=== PATIENT | female | born 1985 | race Caucasian/White ===

== ENCOUNTER 2020-01-10 16:21 | Emergency (ER) | payer OTHER, SELFPAY ==
[2020-01-10 16:32] VITALS: BP 126/63; PULSE 82; RESP 16; TEMP 36.6; O2SAT 98
--- NOTE | 2020-01-10 16:36 | ED.NAVMDI ---
HPI - Nausea/Vomiting/Diarrhea General Chief complaint: Abdominal Pain Stated complaint: Nausea/Vomitting Time Seen by Provider: 01/10/20 16:37 Source: patient and RN notes reviewed Mode of arrival: ambulatory Limitations: no limitations History of Present Illness HPI Narrative: 34-year-old female presents with concern for 4-day history of vomiting. Reports vomiting approximately 3 times daily. Reports decreased appetite. Reports intermittent loose stools. Reports intermittent abdominal cramping. Reports feeling bloated. She denies fever, abdominal pain. Reports she mostly drinks energy drinks, [employer] coffee, does not drink water. Reports she has had a tubal ligation, her last period was approximately 1 month ago. She denies dysuria, hematuria, urine frequency, urine urgency. MD elicited complaint: nausea and vomiting Related Data Allergies Allergy/AdvReac Type Severity Reaction Status Date / Time sulfamethoxazole Allergy Unknown ITCHING, Verified 01/10/20 16:40 HIVES trimethoprim Allergy Unknown ITCHING, Verified 01/10/20 16:40 HIVES Malt Allergy Intermediate RASH Uncoded 01/10/20 16:40 Review of Systems Review of Systems: Narrative: CONSTITUTIONAL: Denies malaise, chills, sweats, or fever. EYES: Denies visual changes, redness, or discharge. ENT: Denies rhinorrhea, congestion, sinus pain, otalgia or sore throat. CARDIOVASCULAR: Denies chest pain, palpitations, or edema. RESPIRATORY: Denies cough or dyspnea. GASTROINTESTINAL: Denies abdominal pain, bloody, or mucous stools. Reports nausea, approximately 3 episodes of vomiting daily, intermittent loose stools, abdominal cramping GENITOURINARY: Denies frequency, urgency, dysuria or hematuria. SKIN: Denies rash or itching. MUSCULOSKELETAL: Denies myalgia. NEUROLOGIC: Denies headache. All systems reviewed & are unremarkable except as noted in HPI and below PMFSH Social History Social History Gender identity (if verbalized by the patient): Female Comments At time of signature, agree with nursing past medical, surgical, social and family history. There is no relevant family history pertinent to the presenting complaint Exam Narrative: Exam Narrative: GENERAL: Well-appearing, well-nourished, and in no acute distress. HEAD: Normocephalic. EYES: PERRLA, conjunctivae clear. NECK: Supple. No lymphadenopathy CHEST: Clear to auscultation. No respiratory distress. HEART: Regular rate and rhythm. No murmur heard. Normal peripheral pulses. ABDOMEN: Soft, nontender upon palpation, nondistended, normal active bowel sounds, no palpable or pulsatile masses, no guarding. No CVA tenderness SKIN: Warm, dry, no rash. NEURO: Alert and oriented x3. PSYCH: Normal mood and affect Course Course Emergency Course: Patient is aware of diagnosis, understands and agrees to treatment plan. Anticipatory guidance given. Patient agrees to follow-up as directed and is aware of reasons to seek care at the emergency department. Portions of this record may have been created with voice recognition software Vital Signs Vital signs: Vital Signs Temperature 97.9 F 01/10/20 16:32 Pulse Rate 82 01/10/20 16:32 Respiratory Rate 16 01/10/20 16:32 Blood Pressure 126/63 01/10/20 16:32 Pulse Oximetry 98 01/10/20 16:32 Temperature 97.9 F 01/10/20 16:32 Pulse Rate 82 01/10/20 16:32 Respiratory Rate 16 01/10/20 16:32 Blood Pressure 126/63 01/10/20 16:32 Pulse Oximetry 98 01/10/20 16:32 Reviewed. MDM - Nausea/Vomiting/Diarrhea MDM Narrative Medical decision making narrative: No evidence of pancreatitis, AAA, cholecystitis, choledocholithiasis, cholangitis, mesenteric ischemia, small bowel obstruction, diverticulitis, colitis, appendicitis, or pelvic etiology such as ovarian/testicular torsion, TOA, or ectopic . Patient has no history of peptic ulcer, H. pylori, chronic aspirin NSAID or corticosteroid use, chronic alcohol use, no history of inflammato
== END 2020-01-10 16:56 | disposition home or self-care (01) ==
PROVIDERS: Emergency Provider Nurse Practitioner
DX: R11.2 Nausea with vomiting, unspecified (principal); R19.7 Diarrhea, unspecified
CPT/HCPCS: 81003; 81025; 99213; G0463

== ENCOUNTER 2021-01-03 17:09 | Emergency (ER) | payer OTHER, SELFPAY ==
--- NOTE | ~2021-01-03 | CT_ITS ---
EXAMINATION: CT BRAIN W/O DATE: 01/03/2021 18:13 INDICATION: Dizziness TECHNIQUE: Computed tomography (CT) of the head was performed without intravenous contrast. The dose- length product was 605.33 mGy-cm. Automated exposure control and iterative reconstruction technique w ere employed. COMPARISON: No prior studies for comparison. FINDINGS: Normal brain parenchymal volume for age. Normal fraga-white differentiation. No acute intrac ranial hemorrhage, infarction, mass or mass effect. No ventriculomegaly or midline shift. Midline sagittal images demonstrate a normal corpus callosum, c raniovertebral junction and sella turcica. Basilar cisterns are patent. Paranasal sinuses and mastoids are pneumatized. No depressed skull fractures. IMPRESSION: 1. No acute intracranial abnormality. Reviewed, dictated and finalized at location A.
--- NOTE | ~2021-01-03 | XR_ITS ---
EXAMINATION: XR chest 1V portable 01/03/2021 18:15 INDICATION: Cough. Nausea. PROCEDURE: AP portable chest COMPARISON: 12/05/2009 FINDINGS: The lungs are clear. The cardiomediastinal silhouette is within normal limits. There are no pleural effusions. There is no pneumothorax suspected. IMPRESSION: 1: NO ACUTE CARDIOPULMONARY DISEASE. Reviewed, dictated and finalized at location A.
[2021-01-03 17:30] VITALS: BP 120/74; PULSE 78; RESP 18; TEMP 36.6; O2SAT 100
--- NOTE | 2021-01-03 17:50 | PC.NURSE ---
at bedside for pt assessment.
--- NOTE | 2021-01-03 17:55 | ECG_ITS ---
Measurements Intervals [place] Rate: 74 P: 43 TX: 137 QRS: 53 QRSD: 89 T: 24 QT: 383 QTc: 426 Interpretive Statements SINUS RHYTHM NORMAL ECG Electronically Signed On 01-03-2021 20:16:18 CDT by Alton Dueñas D.O.
--- NOTE | 2021-01-03 18:03 | PC.NURSE ---
xray at bedside.
[2021-01-03 18:16] LABS: Basophils Absolute Auto 0.1 K/mm3 (0.0-0.1); Basophils Percent Auto 0.9 % (0.2-1.2); Eosinophils Absolute Auto 0.4 K/mm3 (0-0.3); Eosinophils Percent Auto 3.5 % (0-4.4); Hematocrit 36.2 % (37.0-47.0); Immature Granulocyte Absolute 0.03 K/mm3 (0.00-0.031); Immature Granulocyte Percent A 0.3 % (0-0.5); Lymphocytes Percent Auto 47.6 % (18.3-44.2); Mean Corpuscular HGB Conc 33.1 g/dl (32-36); Mean Corpuscular Hemoglobin 28.5 pg (26-34); Monocytes Absolute Auto 0.8 K/mm3 (0.1-0.6); Monocytes Percent Auto 7.3 % (2.6-8.5); Neutrophils Absolute Auto 4.6 K/mm3 (1.3-6.7); Neutrophils Percent Auto 40.4 % (45.5-73.1); Platelet Count Result 289 k/mm3 (150-375); Red Blood Count 4.21 M/mm3 (4.2-5.4); Red Cell Distribution Width 14.6 % (11.5-14.5); White Blood Count 11.4 K/mm3 (4.5-10.0)
[2021-01-03 18:18] VITALS: BP 113/64; PULSE 71; RESP 18; O2SAT 99
[2021-01-03] MEDS: MECLIZINE HCL 25 MG TABLET PO (18:26)
[2021-01-03 18:34] LABS: Alanine Aminotransferase 14 U/L (4-35); Albumin Level 4.4 g/dL (3.5-5.1); Alkaline Phosphatase 58 U/L (38-126); Anion Gap 6 mmol/L (8-16); Aspartate Amino Transferase 25 U/L (14-36); Bilirubin,Total 0.3 mg/dL (0.2-1.3); Blood Urea Nitrogen 9 mg/dL (7-17); Calcium 9.5 mg/dL (8.4-10.2); Carbon Dioxide 26 mmol/L (22-30); Chloride 102 mmol/L (98-107); Estimated CRCL calculation 100 ml/min; Estimated Glomerular Filt Rate > 60; Glucose 76 mg/dL (65-110); Potassium 3.7 mmol/L (3.4-5.0); Sodium 134 mmol/L (137-145)
[2021-01-03 18:42] LABS: Add Urine Microscopic? NO; Appearance Urine Clear (Clear); Bilirubin Urine Negative (Negative); Blood Urine Negative (Negative); Color Urine Yellow (Yellow); Glucose Urine UA Negative (Negative); Ketones Urine Negative (Negative); Leukocyte Esterase Ur Negative LEU/UL (Negative); Nitrate Urine Negative (Negative); Protein Urine Negative (Negative); Specific Grav Ur 1.012 (1.001-1.035); Urobilinogen Urine Negative mg/dL (<2.0)
[2021-01-03 18:55] VITALS: BP 100/54; PULSE 80; RESP 16; O2SAT 99
--- NOTE | 2021-01-03 19:20 | ED.GENADULT ---
HPI - General Adult General Chief complaint: Dizziness Stated complaint: Nausea/Dizzy Time Seen by Provider: 01/03/21 17:44 History of Present Illness HPI narrative: Patient 35-year-old female presents the emergency department with chief complaint of dizziness. Patient reports that she has been having episodes of lightheadedness and dizziness that she has been having since September. Patient reports was seen her primary care physician and had laboratory studies done patient was recommended by her primary doctor to come to the emergency department today for a CT head and a chest x-ray. Patient reports no new symptoms with this reports no focal neurological deficit. Related Data Allergies Allergy/AdvReac Type Severity Reaction Status Date / Time sulfamethoxazole Allergy Unknown ITCHING, Verified 01/03/21 17:30 HIVES trimethoprim Allergy Unknown ITCHING, Verified 01/03/21 17:30 HIVES Malt Allergy Intermediate RASH Uncoded 01/10/20 16:40 Review of Systems Review of Systems: A 10 system review of systems was completed on the patient and is negative except for what is stated in the HPI. Nursing and ancillary documentation was reviewed. [facility] Social History Social History Gender identity (if verbalized by the patient): Female Exam Narrative: GENERAL: Well-appearing, well-nourished, and in no acute distress. HEAD: Normocephalic, atraumatic. EYES: PERRLA and EOMI. ENT: Nares clear, no rhinorrhea or epistaxis. Mucous membranes moist. NECK: Supple. CHEST: Clear to auscultation. No respiratory distress. HEART: Regular rate and rhythm. No murmur heard. Normal peripheral pulses. ABDOMEN: Soft, nontender, nondistended, normal active bowel sounds. EXTREMITIES: Normal range of motion. No edema. SKIN: Warm, dry, no rash. NEURO: No focal deficits. Alert and oriented x3. PSYCH: Normal mood and affect. Course Vital Signs Vital signs: Vital Signs Temperature 36.6 C 01/03/21 17:30 Pulse Rate 78 01/03/21 17:30 Respiratory Rate 18 01/03/21 17:30 Blood Pressure 120/74 01/03/21 17:30 Pulse Oximetry 100 01/03/21 17:30 Temperature 36.6 C 01/03/21 17:30 Pulse Rate 80 01/03/21 18:55 Respiratory Rate 16 01/03/21 18:55 Blood Pressure 100/54 L 01/03/21 18:55 Pulse Oximetry 99 01/03/21 18:55 Medical Decision Making Vital Signs Vital Signs: Vital Signs Temperature 36.6 C 01/03/21 17:30 Pulse Rate 78 01/03/21 17:30 Respiratory Rate 18 01/03/21 17:30 Blood Pressure 120/74 01/03/21 17:30 Pulse Oximetry 100 01/03/21 17:30 Temperature 36.6 C 01/03/21 17:30 Pulse Rate 80 01/03/21 18:55 Respiratory Rate 16 01/03/21 18:55 Blood Pressure 100/54 L 01/03/21 18:55 Pulse Oximetry 99 01/03/21 18:55 Lab Data Result diagrams: 01/03/21 18:01 01/03/21 18:01 Labs: Lab Results 01/03/21 01/03/21 01/03/21 Range/Units 18:01 18:01 18:16 WBC 11.4 H (4.5-10.0) K/mm3 RBC 4.21 (4.2-5.4) M/mm3 Hgb 12.0 (12.0-15.0) g/dL Hct 36.2 L (37.0-47.0) % MCV 86.0 (80-100) fl MCH 28.5 (26-34) pg MCHC 33.1 (32-36) g/dl RDW 14.6 H (11.5-14.5) % Plt Count 289 (150-375) k/mm3 MPV 11.0 H (7.4-10.4) fl Immature Gran % (Auto) 0.3 (0-0.5) % Neut % (Auto) 40.4 L (45.5-73.1) % Lymph % (Auto) 47.6 H (18.3-44.2) % [place] % (Auto) 7.3 (2.6-8.5) % Eos % (Auto) 3.5 (0-4.4) % Baso % (Auto) 0.9 (0.2-1.2) % Lymph # (Auto) 5.40 H (0.9-3.2) K/mm3 [place] # (Auto) 0.8 H (0.1-0.6) K/mm3 Eos # (Auto) 0.4 H (0-0.3) K/mm3 Baso # (Auto) 0.1 (0.0-0.1) K/mm3 Abs Immat Gran (auto) 0.03 (0.00-0.031) K/mm3 Absolute Neuts (auto) 4.6 (1.3-6.7) K/mm3 Absolute Nucleated RBC 0.0 (0.0-0.012) K/mm3 Nucleated RBC % 0.0 (0.0-0.2) % Sodium 134 L (137-145) mmol/L Potassium 3.7 (3.4-5.0) mmol/L Chloride
[2021-01-03 19:22] VITALS: BP 93/43; PULSE 76; RESP 24; O2SAT 99
== END 2021-01-03 19:39 | disposition home or self-care (01) ==
PROVIDERS: Emergency Provider Emergency Medicine; PCP Emergency Medicine
DX: R42 Dizziness and giddiness (principal)
CPT/HCPCS: 36415; 70450; 71045; 80053; 81003; 81025; 85025; 93005; 99284; A9270

== ENCOUNTER 2021-06-24 12:53 | Outpatient (CLI) | payer OTHER, SELFPAY ==
--- NOTE | ~2021-06-24 | MMUS_ITS ---
EXAMINATION: MM diagnostic pérez LT w eletuerio, US breast LT limited HISTORY: Pain in the upper outer quadrant of the left breast TECHNIQUE: Craniocaudal, mediolateral, and mediolateral oblique 3-D tomosynthesis images of the left breast were performed and synthetic 2-D images were generated. CAD analysis was submitted and interpr eted. High resolution limited left breast ultrasound was performed. COMPARISON: No prior mammogram is currently available for comparison. BREAST PARENCHYMAL COMPOSITION: The breasts are heterogeneously dense, which may obscure small masses . FINDINGS: MAMMOGRAPHIC FINDINGS: There is no evidence of suspicious mass, calcification, or architectural distortion in either breast malignancy. There has been no suspicious interval change. ULTRASOUND: There is no evidence of focal abnormal solid or cystic mass in the vicinity of the patient's left nicole ast pain. IMPRESSION: 1. No specific mammographic or sonographic correlate is identified for the patient's reported left br east pain Further evaluation at this time should be based on clinical assessment. Continued follow-up physical examination is recommended. 2. Recommend routine screening mammography beginning at age 40. BI-RADS Category 1: Negative Reviewed, dictated and finalized at location A. BASE SPECIALIST IMPRESSION: 1. No specific mammographic or sonographic correlate is identified for the casa ent's reported left breast pain Further evaluation at this time should be based on clinical assessment. Continued follow-up physical examination is recommende d. 2. Recommend routine screening mammography beginning at age 40. BI-RADS Category 1: Negative
== END 2021-06-24 12:54 | disposition home or self-care (01) ==
LOC: ANHIMG 12:54
PROVIDERS: PCP Emergency Medicine; Visit Provider Emergency Medicine
DX: N63.20 Unspecified lump in the left breast, unspecified quadrant (principal)
CPT/HCPCS: 76642; 77061; 77065; G0279

== ENCOUNTER 2021-07-03 08:48 | Outpatient (CLI) | payer OTHER, SELFPAY ==
--- NOTE | ~2021-07-03 | US_ITS ---
EXAMINATION: US pelvic complete DATE: 07/03/2021 10:47 INDICATION: Lower abdominal pain TECHNIQUE: Multiple transabdominal and endovaginal sonographic images of the pelvis were obtained. COMPARISON: None. FINDINGS: The uterus measures 9.0 x 7.8 x 3.6 cm. There is a questionable bicornuate uterus. The endo metrial complex measures 9 mm. The right ovary measures 4.3 x 2.3 x 1.4 cm. The left ovary measures 4 .9 x 2.4 x 2.2 cm. There is normal vascular flow in the ovaries. There is no free fluid in the pelvis . IMPRESSION: 1. No sonographic correlate for the patient's symptoms. Reviewed, dictated and finalized at location B. Y [employer]
--- NOTE | ~2021-07-03 | US_ITS ---
EXAMINATION: US abdomen complete DATE: 07/03/2021 09:36 INDICATION: Lower abdominal pain TECHNIQUE: Multiple grayscale and Doppler ultrasound images of the abdomen were obtained. COMPARISON: CT, 01/23/2006 FINDINGS: The head, body, and tail of the pancreas are normal. The liver is normal with normal echoge nicity and echotexture. No surface nodularity. Normal hepatopetal flow in the main portal vein. The g allbladder is normal with no abnormal wall thickening, pericholecystic fluid or stones. The normal co mmon bile duct measures 5 mm. There was no sonographic Méndez sign. The visualized portions of the ao rta and inferior vena cava are normal. The right kidney measures 11.2 x 6.2 x 3.9 cm. The left kidney measures 11.0 x 4.8 x 4.5 cm. The kidn eys demonstrate normal parenchymal echogenicity. There is no hydronephrosis. The spleen is normal in appearance and measures 9.4 cm. IMPRESSION: 1. No sonographic correlate for the patient's symptoms. Reviewed, dictated and finalized at location B. MIXER
== END 2021-07-03 08:49 | disposition home or self-care (01) ==
LOC: ANHIMG 08:51
PROVIDERS: PCP Emergency Medicine; Visit Provider Emergency Medicine
DX: R10.30 Lower abdominal pain, unspecified (principal)
CPT/HCPCS: 76700; 76856

== ENCOUNTER 2021-08-07 12:46 | Emergency (ER) | payer OTHER, SELFPAY ==
--- NOTE | ~2021-08-07 | XR_ITS ---
EXAMINATION: XR hand LT 2V DATE: 08/07/2021 13:02 INDICATION: Left hand injury and pain. TECHNIQUE: 3 views of left hand were obtained. COMPARISON: None. FINDINGS: Bone alignment is normal. There is a comminuted fracture of tuft of third distal phalanx in near-anatomic alignment. Joint spaces are normal. IMPRESSION: 1. Comminuted fracture of tuft of third distal phalanx. Reviewed, dictated and finalized at location A.
[2021-08-07 12:48] VITALS: BP 115/73; PULSE 97; RESP 16; TEMP 36.9; O2SAT 100
--- NOTE | 2021-08-07 13:17 | ED.UPPEXIN ---
HPI - Extremity Injury (Upper) General Chief Complaint: Extremity Injury, Upper Stated Complaint: fingers vs windows Time Seen by Provider: 08/07/21 12:54 History of Present Illness HPI narrative: 36-year-old female presents the emergency room with complaints of multiple finger pain on her left hand. Patient states that she was closing a window in her bedroom, when it fell crushing her fingers between the window on the windowsill. Patient states the majority of her pain is in her tips of her second, third, fourth, fifth fingers. Related Data Allergies Allergy/AdvReac Type Severity Reaction Status Date / Time sulfamethoxazole Allergy Unknown ITCHING, Verified 08/07/21 12:46 HIVES trimethoprim Allergy Unknown ITCHING, Verified 08/07/21 12:46 HIVES Malt Allergy Intermediate RASH Uncoded 01/10/20 16:40 Review of Systems Review of Systems: CONSTITUTIONAL: Denies fever, chills, or sweats. EYES: Denies visual changes, redness, or discharge. ENT: Denies rhinorrhea, congestion, sore throat, or otalgia. CARDIOVASCULAR: Denies chest pain, palpitations, or edema. RESPIRATORY: Denies cough or dyspnea. GASTROINTESTINAL: Denies abdominal pain, nausea, vomiting, or diarrhea. GENITOURINARY: Denies dysuria or hematuria. SKIN: Denies rash or itching. MUSCULOSKELETAL: Reports pain to the tips of the left second through fifth fingers NEUROLOGIC: Denies headache, numbness, dizziness, or weakness. PSYCHIATRIC: Denies anxiety or depression. PMFSH Social History Social History Gender identity (if verbalized by the patient): Female Exam Narrative: GENERAL: Well-appearing, well-nourished, and in no acute distress. HEAD: Normocephalic, atraumatic. EYES: PERRLA and EOMI. CHEST: Clear to auscultation. No respiratory distress. No wheezes rales or rhonchi HEART: Regular rate and rhythm. No murmur heard. Normal peripheral pulses. ABDOMEN: Soft, nontender, nondistended, normal active bowel sounds. EXTREMITIES: Left hand: Tenderness with ecchymosis and soft tissue swelling to the tips of the second through fifth digits with no associated nailbed injury SKIN: Warm, dry, no rash. NEURO: No focal deficits. Alert and oriented x3. PSYCH: Normal mood and affect. Course Vital Signs Vital signs: Vital Signs Temperature 36.9 C 08/07/21 12:48 Pulse Rate 97 08/07/21 12:48 Respiratory Rate 16 08/07/21 12:48 Blood Pressure 115/73 08/07/21 12:48 Pulse Oximetry 100 08/07/21 12:48 Temperature 36.9 C 08/07/21 12:48 Pulse Rate 97 08/07/21 12:48 Respiratory Rate 16 08/07/21 12:48 Blood Pressure 115/73 08/07/21 12:48 Pulse Oximetry 100 08/07/21 12:48 MDM - Extremity Injury (Upper) Imaging Data Radiologist's impression: Impressions Hand X-Ray 08/07/21 13:07 IMPRESSION: 1. Comminuted fracture of tuft of third distal phalanx. Discharge Plan Discharge Clinical Impression: Finger fracture, left Patient Disposition: Home, Self-Care Condition: Stable Instructions: Antibiotic Form Additional Instructions: Keep splint on finger until your follow-up appointment with Dr. Carter. Recommend calling the hand surgeon, Dr. Carter, today for follow-up on either or Thursday. May take Tylenol for pain as needed Prescriptions: New meloxicam 15 mg tablet 15 mg PO DAILY Qty: 14 RF: 0 Follow-up/Referrals: Juanjo Carter MD [Physician] - Yovany Gonzalez MD [Primary Care Provider] - Time of Disposition: 13:21
== END 2021-08-07 13:38 | disposition home or self-care (01) ==
PROVIDERS: Emergency Provider Nurse Practitioner Family; PCP Emergency Medicine
DX: S62.633A Displaced fracture of distal phalanx of left middle finger, initial encounter for closed fracture (principal); W23.0XXA Caught, crushed, jammed, or pinched between moving objects, initial encounter
CPT/HCPCS: 29130; 73120; 99284

== ENCOUNTER 2021-11-04 18:58 | Emergency (ER) | payer OTHER, SELFPAY ==
--- NOTE | ~2021-11-04 | CT_ITS ---
EXAMINATION: CT abdomen pelvis w con DATE: 11/04/2021 21:06 INDICATION: Vomiting for 4 days. Abdominal pain. TECHNIQUE: Computed tomography (CT) of the abdomen and pelvis was performed with 100 cc Omnipaque 300 intravenous contrast. The dose-length product was 217.01 mGy-cm. Automated exposure control and iter ative reconstruction technique were employed. COMPARISON: CT dated 01/23/2006. FINDINGS: Lung bases are unremarkable. Lung bases are unremarkable. Heart size normal. No significant pleural or pericardial effusion. The liver, spleen, pancreas, adrenal glands and kidneys are unremar kable. Gallbladder is present. Nonobstructive bowel gas pattern. The endometrium is thickened and bif urcated suggesting septate or bicornuate uterus. Levocurvature of the lumbar spine. There is a intram edullary margy in the left femur proximally. IMPRESSION: 1. No acute abdominal abnormality. 2: Abnormal appearing endometrium suggesting septate or bicornuate uterus. Consider correlation with ultrasound on a nonemergent basis. Reviewed, dictated and finalized at location A. IMPRESSION: 1. No acute abdominal abnormality. 2: Abnormal appearing endometrium suggesting septate or bicornuate uterus. Cons ider correlation with ultrasound on a nonemergent basis.
[2021-11-04 19:20] VITALS: BP 113/71; PULSE 74; RESP 18; TEMP 36.7; O2SAT 98
[2021-11-04 19:38] LABS: Basophils Absolute Auto 0.1 K/mm3 (0.0-0.1); Eosinophils Absolute Auto 0.2 K/mm3 (0-0.3); Eosinophils Percent Auto 2.4 % (0-4.4); Hemoglobin 12.3 g/dL (12.0-15.0); Immature Granulocyte Absolute 0.01 K/mm3 (0.00-0.031); Immature Granulocyte Percent A 0.1 % (0-0.5); Lymphocytes Absolute Auto 4.16 K/mm3 (0.9-3.2); Lymphocytes Percent Auto 52.9 % (18.3-44.2); Mean Corpuscular HGB Conc 32.4 g/dl (32-36); Mean Corpuscular Hemoglobin 28.8 pg (26-34); Mean Platelet Volume 11.6 fl (7.4-10.4); Monocytes Absolute Auto 0.5 K/mm3 (0.1-0.6); Monocytes Percent Auto 6.6 % (2.6-8.5); Neutrophils Absolute Auto 2.9 K/mm3 (1.3-6.7); Platelet Count Result 255 k/mm3 (150-375); Red Blood Count 4.27 M/mm3 (4.2-5.4); White Blood Count 7.9 K/mm3 (4.5-10.0)
[2021-11-04 19:45] LABS: Appearance Urine Slightly Cloudy (Clear); Bilirubin Urine Negative (Negative); Blood Urine 2+ (Negative); Color Urine Yellow (Yellow); Glucose Urine UA Negative (Negative); Ketones Urine Negative (Negative); Leukocyte Esterase Ur Negative LEU/UL (Negative); Nitrate Urine Negative (Negative); Protein Urine Negative (Negative); Specific Grav Ur 1.025 (1.001-1.035); Urobilinogen Urine 0.2 mg/dL (<2.0); pH Urine 6.5 (5.0-9.0)
[2021-11-04 19:49] LABS: Mucus Urine Rare /lpf; RBC Urine 0-2 /hpf (0-2); Squamous Epithelial Cell Urine Moderate /hpf (Few); WBC Urine 0-3 /hpf
[2021-11-04 19:52] LABS: Alanine Aminotransferase 15 U/L (6-35); Albumin Level 3.5 g/dL (3.5-5.1); Alkaline Phosphatase 66 U/L (38-126); Anion Gap 2 mmol/L (8-16); Aspartate Amino Transferase 24 U/L (14-36); Bilirubin,Total 0.2 mg/dL (0.2-1.3); Blood Urea Nitrogen 13 mg/dL (7-17); Calcium 8.5 mg/dL (8.4-10.2); Carbon Dioxide 28 mmol/L (22-30); Chloride 106 mmol/L (98-107); Estimated CRCL calculation 84 ml/min; Estimated Glomerular Filt Rate > 60; Glucose 86 mg/dL (65-110); Lipase 64 U/L (23-300); Potassium 4.2 mmol/L (3.4-5.0); Sodium 136 mmol/L (137-145)
[2021-11-04 19:58] LABS: Add Urine Microscopic? YES
--- NOTE | 2021-11-04 20:37 | ED.ABDPAIN ---
HPI - Abdominal Pain General Chief Complaint: Abdominal Pain Stated Complaint: abd pain, vomiting Time Seen by Provider: 11/04/21 19:55 Source: RN notes reviewed History of Present Illness HPI narrative: Patient presents emergency room from home for nausea vomiting. Patient states that symptoms began 4 days ago. has been having numerous episodes of nausea and vomiting. States is associated with abdominal pain in the lower abdomen described as cramping. States she did have diarrhea for 4 days ago but has had none since. She states subjective fevers denies any chills, chest pain shortness of breath or any other symptoms. Patient states she was recently diagnosed with H. pylori has been taking the antibiotics for this for approximately 1 week she is followed by Dr. Gonzalez she also says she is at increased anxiety today patient is currently on Flagyl and omeprazole by her PCP for H. pylori Related Data Allergies Allergy/AdvReac Type Severity Reaction Status Date / Time sulfamethoxazole Allergy Unknown ITCHING, Verified 11/04/21 19:23 HIVES trimethoprim Allergy Unknown ITCHING, Verified 11/04/21 19:23 HIVES Malt Allergy Intermediate RASH Uncoded 11/04/21 19:23 Review of Systems Review of Systems: Gen.: Denies fevers or chills ENT: Denies congestion Respiratory: Denies shortness of breath or cough CV: Denies chest pain or palpitations GI: See HPI denies burning, urgency, frequency or hematuria Musculoskeletal: Denies back pain or muscle pain Neuro: Denies numbness, tingling, weakness or focal weakness Skin: Denies rash Psych: Reports anxiety Except as documented, all other systems reviewed and negative [facility] Past Medical History Medical History (Updated 11/04/21 @ 21:51 by Juanjo Jordan DO) H. pylori infection Social History Social History (Updated 11/04/21 @ 20:39 by Juanjo Jordan DO) Smoking status: Current every day smoker Substance use type: marijuana Gender identity (if verbalized by the patient): Female Exam Narrative: APPEARANCE: Anxious and tearful in bed nontoxic HEENT: Normocephalic, atraumatic, OMM RESPIRATORY: No respiratory distress, clear to auscultation bilaterally with no rhonchi wheezing or rales CARDIOVASCULAR: RRR s murmur ABDOMINAL: Soft nondistended tender palpation right lower quadrant left lower quadrant no tenderness in any quadrant left upper quadrant no rebound or guarding MUSCULOSKELETAl: Moves all extremities. No clubbing, cyanosis or edema. NEURO: Awake and alert. Following commands, speech normal, no focal deficits SKIN:: Warm, dry. Normal Color PSYCHIATRIC: Anxious and tearful Course Course Emergency Course: I reviewed patient's old imaging she had a ultrasound in June of her pelvis that showed findings concerning for bicornate uterus at that time Patient states that they are feeling much better at this time. States abdominal pain has resolved. Repeat abdominal exam shows the patient's abdomen to be soft and nontender. Discussed with patient results of workup and diagnosis. Discussed need for follow-up with primary care physician, reasons to return to the emergency department in proper use of medication. Patient understands and agrees to current treatment plan Vital Signs Vital signs: Vital Signs Temperature 98.0 F 11/04/21 19:20 Pulse Rate 74 11/04/21 19:20 Respiratory Rate 18 11/04/21 19:20 Blood Pressure 113/71 11/04/21 19:20 Pulse Oximetry 98 11/04/21 19:20 Oxygen Delivery Room Air 11/04/21 19:20 Temperature 98.0 F 11/04/21 19:20 Pulse Rate 74 11/04/21 19:20 Respiratory Rate 18 11/04/21 19:20 Blood Pressure 113/71 11/04/21 19:20 Pulse Oximetry 98 11/04/21 19:20 Oxygen Delivery Room Air 11/04/21 19:20 MDM - Abdominal Pain MDM Narrative Medical decision making narrative: Patient's abdomen is soft without significant pain or signs of surgical abdomen on serial exams. Lab and x-ray evaluations are
[2021-11-04] MEDS: SODIUM CHLORIDE 0.9% IV 1,000 ML 999 ML IV CONT (20:50)
[2021-11-04] MEDS: KETOROLAC 30 MG/ML VIAL (*BKC) IV PUSH (20:51)
[2021-11-04] MEDS: ONDANSETRON INJ 4 MG/2 ML VIAL IV PUSH (20:51)
[2021-11-04] MEDS: LORazepam INJ (*CRX) 2 MG/ML VIAL 0.5 MG IV PUSH (20:52)
[2021-11-04 22:04] VITALS: BP 122/53; PULSE 76; RESP 18; O2SAT 99
== END 2021-11-04 22:06 | disposition home or self-care (01) ==
PROVIDERS: Emergency Provider Emergency Medicine; PCP Emergency Medicine
DX: R11.2 Nausea with vomiting, unspecified (principal); R10.32 Left lower quadrant pain; R10.31 Right lower quadrant pain; F17.200 Nicotine dependence, unspecified, uncomplicated; R93.89 Abnormal findings on diagnostic imaging of other specified body structures
CPT/HCPCS: 36415; 74177; 80053; 81001; 81025; 83690; 85025; 96361; 96374; 96375; 99284; J1885; J2060; J2405; J7030; Q9967

== ENCOUNTER 2021-11-30 10:31 | Outpatient (CLI) | payer OTHER, SELFPAY ==
[2021-12-04 03:32] LABS: H pylori Ag Stool Not Detected (Not Detected)
== END 2021-11-30 10:32 | disposition home or self-care (01) ==
PROVIDERS: PCP Emergency Medicine; Visit Provider Nurse Practitioner
DX: A04.8 Other specified bacterial intestinal infections (principal); R10.9 Unspecified abdominal pain; R11.2 Nausea with vomiting, unspecified; R13.10 Dysphagia, unspecified
CPT/HCPCS: 87338

== ENCOUNTER 2021-12-26 01:39 | Day surgery (SDC) | payer OTHER, SELFPAY ==
[2021-12-16 11:04] VITALS: BMI 21.3
--- NOTE | 2021-12-25 13:21 | PM.HPGS ---
History of Present Illness History of Present Illness Consent: Risks, benefits, and alternatives have been discussed and questions answered. Patient agrees to proceed with procedure. Chief complaint: weight loss, nausea Narrative: Neetu Mcfadden is a 36 year old female who was recently seen in the office with several symptoms including cramping mid abdominal pain for the past year.? She states that she did take dicyclomine which helped her pain but made her vision very blurry.? She also had been in the emergency room several weeks ago with nausea vomiting and diarrhea.? There CT scan of the abdomen was done that was negative.? It was there that she is prescribed dicyclomine and she is also was given Zofran.? Although dicyclomine helped, she had side effects.A week or 2 prior to that her primary care physician had ordered a breath test for H pylori which was positive.? That test was done because her daughter who was 16 was found to be positive for H pylori after having had multiple test to try and determine why she was vomiting.? The patient's son also is ill with nausea and vomiting.? He has only 3 years old and apparently he is going to have endoscopy in a couple of weeks.? The patient has been losing weight.? She normally weighs between 130 and 150 and now is down to less than 120 she states that she will go 2 or 3 days without eating because she has absolutely no appetite.? She is frequently? nauseated, but and has not been vomiting so much lately.? She does however have pain when she eats and the pain goes all way down to her chest and into her mid abdomen a gets a raw feeling.?? A Follow-up stool test done November 30 was negative for H pylori. Review of Systems Review of Systems: All systems reviewed & are unremarkable except as noted in HPI and below PMFSH Past Medical History Medical History Abdominal pain Anxiety Dysphagia Dysphagia H. pylori infection Marijuana dependence Nausea and vomiting Tobacco dependence Social History Social History Smoking packs per day: 2 Smoking cigarettes per day: 40.0 Years smoked: 20 Smoking pack-years: 40.00 Smoking status: Current every day smoker Tobacco type: cigarettes Alcohol intake: never Substance use: current Substance use type: marijuana Living arrangements: with family Gender identity (if verbalized by the patient): Female Spiritual care concerns: No Meds Home Medications and Allergies Home Medications Medication Instructions Recorded Confirmed Type dicyclomine 20 mg tablet 20 mg PO TID PRN Abdominal 11/07/21 12/26/21 Rx cramping #90 tabs Allergies Allergy/AdvReac Type Severity Reaction Status Date / Time sulfamethoxazole Allergy Unknown ITCHING, Verified 12/26/21 10:02 HIVES trimethoprim Allergy Unknown ITCHING, Verified 12/26/21 10:02 HIVES Malt Allergy Intermediate RASH Uncoded 12/26/21 10:02 Exam Const: General: alert Orientation/consciousness: patient oriented x3 Resp: Auscultation: clear to auscultation bilaterally Cardio: Rhythm: regular rhythm GI: GI Palp: Yes Soft to palpation and No Tenderness to palpation present (GI) Neuro: General: patient oriented x3 Assessment and Plan Assessment and plan (1) Nausea and vomiting: Code(s): R11.2 - Nausea with vomiting, unspecified Status: Acute Assessment and Plan: EGD with possible biopsy or dilatation or cautery. (2) Marijuana dependence: Code(s): F12.20 - Cannabis dependence, uncomplicated Status: Acute
[2021-12-26 10:03] VITALS: BP 100/56; PULSE 67; RESP 18; TEMP 36.9; O2SAT 100
[2021-12-26] MEDS: LACTATED RINGERS 1,000 ML 150 ML IV CONT (10:12)
--- NOTE | 2021-12-26 10:16 | WPDANESEPPF ---
Anes - Initial Pre Proc Eval Procedure: Operation Date: 12/26/21 11:00 Proposed Procedures p Esophagogastroduodenoscopy - Michael Naidu MD Date/Time: 12/26/21 10:16 Surgeon: Michael Naidu MD Pre Op Diagnosis: weight loss, nausea Patient Data Age: 36 Gender: F Height: 1.57 m Weight: 52.2 kg Last Vital Signs Temp 98.4 F 12/26/21 10:03 Pulse 67 12/26/21 10:03 Resp 18 12/26/21 10:03 BP 100/56 L 12/26/21 10:03 Pulse Ox 100 12/26/21 10:03 O2 Del Method Room Air 12/26/21 10:03 Allergies Allergy/AdvReac Type Severity Reaction Status Date / Time sulfamethoxazole Allergy Unknown ITCHING, Verified 12/26/21 10:02 HIVES trimethoprim Allergy Unknown ITCHING, Verified 12/26/21 10:02 HIVES Malt Allergy Intermediate RASH Uncoded 12/26/21 10:02 Home Medications Medication Instructions Recorded Confirmed Type dicyclomine 20 mg tablet 20 mg PO TID PRN Abdominal 11/07/21 12/26/21 Rx cramping #90 tabs Patient hx anesthesia problems: none Family hx anesthesia problems: none Results Review: All pre-operative results and documents have been reviewed as part of the pre-operative evaluation. [facility] Past Medical History Medical History Abdominal pain Anxiety Dysphagia Dysphagia H. pylori infection Marijuana dependence Nausea and vomiting Tobacco dependence Social History Social History Smoking packs per day: 2 Smoking cigarettes per day: 40.0 Years smoked: 20 Smoking pack-years: 40.00 Smoking status: Current every day smoker Tobacco type: cigarettes Alcohol intake: never Substance use: current Substance use type: marijuana Living arrangements: with family Gender identity (if verbalized by the patient): Female Spiritual care concerns: No Anes - Eval Final PreProcedure Day of Procedure 12/26/21 10:16 Patient weight: normal Heart: regular rate and rhythm Lungs: clear to auscultation Airway: Mallampati scale class II Neurological: alert and oriented Last oral intake: >/= 8 hours ASA classification: II Emergent: no Anesthetic plan: proceed Anesthesia type and monitoring: general GIVS and standard monitoring Results Review: All pre-operative results and documents have been reviewed as part of the pre-operative evaluation. Informed Consent: The patient's anesthetic plan and its attendant risks and benefits were discussed with the patient/family/POA. Questions were solicited and answers provided to the satisfaction of the patient/family/POA.
[2021-12-26 10:35] VITALS: BP 94/48; PULSE 71; RESP 28; O2SAT 100
[2021-12-26 10:45] VITALS: BP 112/73; PULSE 66; RESP 24; O2SAT 100
[2021-12-26 10:55] VITALS: BP 118/80; PULSE 82; RESP 25; O2SAT 100
== END 2021-12-26 11:06 | disposition home or self-care (01) ==
PROVIDERS: PCP Emergency Medicine; Visit Provider Internal Medicine Gastroenterology
PROC: 0DJ08ZZ Inspection of Upper Intestinal Tract, Via Natural or Artificial Opening Endoscopic (ICD-10-PCS; CPT 43235; principal; 2021-12-26 11:00)
DX: K21.9 Gastro-esophageal reflux disease without esophagitis (principal); K29.70 Gastritis, unspecified, without bleeding; R63.4 Abnormal weight loss; F12.20 Cannabis dependence, uncomplicated; F17.210 Nicotine dependence, cigarettes, uncomplicated
CPT/HCPCS: 43239; 87081; 88305; J2704; J7120

== ENCOUNTER 2022-05-16 09:39 | Emergency (ER) | payer OTHER, SELFPAY ==
[2022-05-16 10:02] VITALS: BP 114/65; PULSE 80; RESP 18; TEMP 37; O2SAT 100
--- NOTE | 2022-05-16 10:07 | ED.FEMALEGU ---
HPI - Female Genitourinary General Chief complaint: Urogenital-Female Stated complaint: yeast infection Time Seen by Provider: 05/16/22 10:26 Source: patient and RN notes reviewed Mode of arrival: ambulatory Limitations: no limitations History of Present Illness HPI Narrative: 37-year-old female presents with concern for 3 day history of worsening dysuria, hesitation, suprapubic pressure. Reports 1 week ago she noticed a small amount hematuria. Reports over the last 3 days she having chills aches. She denies abdominal pain, nausea, vomiting, back pain, fever MD elicited complaint: UTI Related Data Allergies Allergy/AdvReac Type Severity Reaction Status Date / Time sulfamethoxazole Allergy Unknown ITCHING, Verified 05/16/22 09:50 HIVES trimethoprim Allergy Unknown ITCHING, Verified 05/16/22 09:50 HIVES Malt Allergy Intermediate RASH Uncoded 05/16/22 09:50 Review of Systems Review of Systems: CONSTITUTIONAL: Reports malaise, chills. Denies Sweats, or fever. CARDIOVASCULAR: Denies chest pain, palpitations, or edema. RESPIRATORY: Denies cough or dyspnea. GASTROINTESTINAL: Denies abdominal pain, nausea, vomiting, diarrhea GENITOURINARY: Reports dysuria, hesitancy, hematuria, suprapubic pressure. SKIN: Denies rash or itching. MUSCULOSKELETAL: Denies back pain. Reports Myalgia. All systems reviewed & are unremarkable except as noted in HPI and below PMFSH Past Medical History Medical History Abdominal pain Anxiety Dysphagia Dysphagia H. pylori infection Marijuana dependence Nausea and vomiting Tobacco dependence Social History Social History Smoking packs per day: 2 Smoking cigarettes per day: 40.0 Years smoked: 20 Smoking pack-years: 40.00 Smoking status: Current every day smoker Tobacco type: cigarettes Alcohol intake: never Substance use: current Substance use type: marijuana Living arrangements: with family Gender identity (if verbalized by the patient): Female Spiritual care concerns: No Comments At time of signature, agree with nursing past medical, surgical, social and family history. There is no relevant family history pertinent to the presenting complaint Exam Narrative: GENERAL: Well-appearing, well-nourished, and in no acute distress. HEAD: Normocephalic. EYES: PERRLA, conjunctivae clear. NECK: Supple. No lymphadenopathy CHEST: Clear to auscultation. No respiratory distress. HEART: Regular rate and rhythm. ABDOMEN: Soft, nontender upon palpation, nondistended, normal active bowel sounds, no palpable or pulsatile masses, no guarding. No CVA tenderness SKIN: Warm, dry, no rash. NEURO: Alert and oriented x3. PSYCH: Normal mood and affect Course Course Emergency Course: Patient is aware of diagnosis, understands and agrees to treatment plan. Anticipatory guidance given. Patient agrees to follow-up as directed and is aware of reasons to seek care at the emergency department. Portions of this record may have been created with voice recognition software Level of Care: Express Care Visit Vital Signs Vital signs: Vital Signs Temperature 98.6 F 05/16/22 10:02 Pulse Rate 80 05/16/22 10:02 Respiratory Rate 18 05/16/22 10:02 Blood Pressure 114/65 05/16/22 10:02 Pulse Oximetry 100 05/16/22 10:02 Oxygen Delivery Room Air 05/16/22 10:02 Temperature 98.6 F 05/16/22 10:02 Pulse Rate 80 05/16/22 10:02 Respiratory Rate 18 05/16/22 10:02 Blood Pressure 114/65 05/16/22 10:02 Pulse Oximetry 100 05/16/22 10:02 Oxygen Delivery Room Air 05/16/22 10:02 Reviewed. MDM - Female Genitourinary MDM Narrative Medical decision making narrative: Exam findings and UA show no acute concerns or changes; patient is non-toxic appearing and is in no distress. Patient is appropriate for outpatient treatment and follow-up. Differenti
== END 2022-05-16 10:41 | disposition home or self-care (01) ==
PROVIDERS: Emergency Provider Nurse Practitioner; PCP Emergency Medicine
DX: N39.0 Urinary tract infection, site not specified (principal); F17.210 Nicotine dependence, cigarettes, uncomplicated; F12.90 Cannabis use, unspecified, uncomplicated
CPT/HCPCS: 81003; 87077; 87086; 87186; 99213; G0463

== ENCOUNTER 2022-10-01 17:55 | Emergency (ER) | payer OTHER, SELFPAY ==
--- NOTE | ~2022-10-01 | US_ITS ---
EXAMINATION: US pelvic complete w TV DATE: 10/01/2022 19:57 INDICATION: Dyspareunia TECHNIQUE: Multiple transabdominal and endovaginal sonographic images of the pelvis were obtained. COMPARISON: 07/03/2021 FINDINGS: The uterus measures 7.2 x 3.3 x 4.2 cm. The endometrial complex measures 3 mm. The right ov jama measures 4.1 x 1.8 x 1.5 cm. The left ovary measures 2.6 x 1.2 x 1.8 cm. There is normal vascular flow in the ovaries. There is no free fluid in the pelvis. IMPRESSION: 1. No sonographic correlate for the patient's symptoms. Reviewed, dictated and finalized at location F.
[2022-10-01 17:57] VITALS: BP 126/79; PULSE 79; RESP 16; TEMP 36.7; O2SAT 98
--- NOTE | 2022-10-01 18:13 | PC.NURSE ---
patient reports that she was recently dx with UTI and bacterial infection. states that she completed medication that was prescribed. feels like razor blades . denies bleeding or discharge
[2022-10-01 19:08] VITALS: BP 122/64; O2SAT 98
[2022-10-01 19:09] VITALS: O2SAT 98
[2022-10-01 19:15] VITALS: O2SAT 97
[2022-10-01 19:16] VITALS: BP 117/68; O2SAT 97
[2022-10-01 19:44] LABS: Appearance Urine Clear (Clear); Bacteria Urine None Seen /hpf; Bilirubin Urine Negative (Negative); Blood Urine Negative (Negative); Color Urine Yellow (Yellow); Glucose Urine UA Negative (Negative); Ketones Urine Negative (Negative); Leukocyte Esterase Ur Trace LEU/UL (Negative); Nitrate Urine Negative (Negative); Non Pathogenic Casts 0-2; Protein Urine Negative (Negative); RBC Urine 0-2 /hpf (0-2); Specific Grav Ur 1.009 (1.001-1.035); Squamous Epithelial Cell Urine None seen /hpf (Few); Urobilinogen Urine 0.2 mg/dL (<2.0); WBC Urine 0-5 /hpf; pH Urine 5.5 (5.0-9.0)
[2022-10-01 19:47] LABS: Add Urine Microscopic? YES
--- NOTE | 2022-10-01 20:24 | ED.GENADULT ---
HPI - General Adult General Chief complaint: Unspecified <DEB Angel Last Filed: 10/02/22 02:26> Stated complaint: vaginal pain <DEB Angel Last Filed: 10/02/22 02:26> Time Seen by Provider: 10/01/22 18:04 <DEB Angel Last Filed: 10/02/22 02:26> Source: patient <DEB Angel Last Filed: 10/02/22 02:26> Mode of arrival: ambulatory <DEB Angel Last Filed: 10/02/22 02:26> Limitations: no limitations <DEB Angel Last Filed: 10/02/22 02:26> History of Present Illness HPI narrative: Patient is a 77-year-old female who presents to the ED with report of pelvic pain. Patient reports she has chronic issues with dyspareunia, typically only having pain while having intercourse. She had sexual intercourse this afternoon and experienced worsening pain with this, which persisted after the intercourse. She complains of pain and pressure in her mid lower pelvic region. She states she felt like something popped. She denies any abnormal bleeding, abnormal vaginal discharge, concern for STDs, fevers, dysuria, hematuria, nausea, vomiting, fevers. Patient sees Dr. Doty with [facility]. She states she was treated for STDs and a UTI a few weeks ago. <DEB Angel Last Filed: 10/02/22 02:26> Related Data Allergies/adverse reactions: Allergies Allergy/AdvReac Type Severity Reaction Status Date / Time sulfamethoxazole Allergy Unknown ITCHING, Verified 10/01/22 18:09 HIVES trimethoprim Allergy Unknown ITCHING, Verified 10/01/22 18:09 HIVES Malt Allergy Intermediate RASH Uncoded 05/16/22 09:50 <DEB Angel Last Filed: 10/02/22 02:26> Review of Systems Review of Systems: CONSTITUTIONAL: Denies fever, chills, or sweats. GASTROINTESTINAL: See HPI. GENITOURINARY: See HPI. SKIN: Denies rash or itching. MUSCULOSKELETAL: Denies back pain, joint pain, or myalgia. <Suzie Dick PA-C - Last Filed: 10/02/22 02:26> All systems reviewed & are unremarkable except as noted in HPI and below <Suzie Dick PA-C - Last Filed: 10/02/22 02:26> PMFSH Past Medical History Medical History: Medical History Abdominal pain Anxiety Dysphagia Dysphagia H. pylori infection Marijuana dependence Nausea and vomiting Tobacco dependence <Suzie Dick PA-C - Last Filed: 10/02/22 02:26> Social History Social History: Social History Smoking packs per day: 2 Smoking cigarettes per day: 40.0 Years smoked: 20 Smoking pack-years: 40.00 Smoking status: Current every day smoker Tobacco type: cigarettes Alcohol intake: never Substance use: current Substance use type: marijuana Living arrangements: with family Gender identity (if verbalized by the patient): Female Spiritual care concerns: No <Suzie Dick PA-C - Last Filed: 10/02/22 02:26> Exam Narrative: GENERAL: Well appearing, well-nourished, non-toxic, in no acute distress. HEAD: Normocephalic, atraumatic. NECK: Supple. No adenopathy, no masses. RESPIRATORY: Airway patent, respirations nonlabored. Clear to auscultation bilaterally, no rales, rhonchi, wheezing. CARDIOVASCULAR: Regular rate and rhythm without murmurs, rubs, or gallops. Radial pulses 2+ and equal bilaterally. ABDOMINAL: Soft, very minimal tenderness over suprapubic region/lower pelvic region, nondistended, no hepatosplenomegaly. Normoactive BS. MUSCULOSKELETAL: Moves all extremities. Strength/ROM intact without gross deformities. SKIN: Warm, dry, normal color. No rashes. NEURO: A&O X3. Speech clear. Cranial nerves II-XII grossly intact. Steady gait. No ataxic movements. PSYCHIATRIC: Appropriate mood and affect. Normal interaction. <Suzie Dick PA-C - Last File
== END 2022-10-01 21:15 | disposition home or self-care (01) ==
PROVIDERS: Emergency Provider Physician Assistant; PCP Emergency Medicine
DX: N94.10 Unspecified dyspareunia (principal); F17.210 Nicotine dependence, cigarettes, uncomplicated
CPT/HCPCS: 76830; 76856; 81001; 81025; 99284

== ENCOUNTER 2022-12-20 14:30 | Emergency (ER) | payer OTHER, SELFPAY ==
[2022-12-20 14:43] VITALS: BP 110/73; PULSE 75; RESP 16; TEMP 36.6; O2SAT 99
--- NOTE | 2022-12-20 14:53 | ED.GENADULT ---
HPI - General Adult General Chief complaint: Psychiatric Symptoms Stated complaint: emotional Source: patient and RN notes reviewed Mode of arrival: ambulatory Limitations: no limitations History of Present Illness HPI narrative: 37 y/o female presented for c/o feeling tingling all over body today with lightheadedness and anxiety. States symptoms started after learning that her father who requires oxygen concentrator, but he lost power this morning and she became anxious he would . Patient stopped paxil 9 days ago on her own, and has had intermittent tingling since then. States she attempted to contact her PCP, but he was out of the office. States the dose of the paxil changes too often and she does not want that medication. States she has Psychiatrist scottie scheduled in Apr 2023. Smokes 2ppd and marijuana. Related Data Home Medications Medication Instructions Recorded Confirmed Depo-Provera Contraceptive 12/20/22 Allergies Allergy/AdvReac Type Severity Reaction Status Date / Time sulfamethoxazole Allergy Unknown ITCHING, Verified 12/20/22 14:58 HIVES trimethoprim Allergy Unknown ITCHING, Verified 12/20/22 14:58 HIVES Malt Allergy Intermediate RASH Uncoded 12/20/22 14:58 Review of Systems Review of Systems: CONSTITUTIONAL: Denies body aches, fever, chills, or sweats. EYES: Denies visual changes, redness, or discharge. ENT: Denies rhinorrhea, congestion, sore throat, or otalgia. CARDIOVASCULAR: Denies chest pain, palpitations, or edema. RESPIRATORY: Denies cough or dyspnea. GASTROINTESTINAL: Denies abdominal pain, nausea, vomiting, or diarrhea. GENITOURINARY: Denies dysuria or hematuria. SKIN: Denies rash, itching, or wounds. MUSCULOSKELETAL: Denies back pain, joint pain, or myalgia. NEUROLOGIC: Endorses numbness, tingling, denies headache, weakness, dizziness PSYCH: Endorses anxiety All systems reviewed & are unremarkable except as noted in HPI and below PMFSH Past Medical History Medical History Abdominal pain Anxiety Dysphagia Dysphagia H. pylori infection Marijuana dependence Nausea and vomiting Tobacco dependence Social History Social History Smoking packs per day: 2 Smoking cigarettes per day: 40.0 Years smoked: 20 Smoking pack-years: 40.00 Smoking status: Current every day smoker Tobacco type: cigarettes Alcohol intake: never Substance use: current Substance use type: marijuana Living arrangements: with family Gender identity (if verbalized by the patient): Female Spiritual care concerns: No Comments At time of signature, I have reviewed and agree with nursing past medical, surgical, social and family history unless otherwise noted. Please see nursing chart for further information. There is no relevant family history pertinent to the presenting complaint Exam Narrative: GENERAL: Well-appearing, well-nourished HEAD: Normocephalic, atraumatic. EYES: PERRLA, EOMI. ENT: Mucous membranes pink and moist. No rhinorrhea. NECK: Normal AROM. Supple. No lymphadenopathy. CHEST: No respiratory distress. Clear to auscultation. HEART: Regular rate and rhythm. No murmur appreciated. Normal peripheral pulses. ABDOMEN: Soft, nontender, nondistended, normal active bowel sounds. MUSCULOSKELETAL: No bony tenderness. EXTREMITIES: Normal range of motion. No edema. SKIN: Warm, dry, no rash. Capillary refill normal. Normal skin turgor. NEURO:No focal deficits. Alert and oriented x3. Finger to nose intact bilaterally. EOMs intact without nystagmus. No facial droop/asymmetry noted bilaterally. Grimace intact. Intact sensation in face. Hearing intact bilaterally. Shoulder shrug intact. Strength 5/5 bilateral upper extremities. Strength 5/5 bilateral lower extremities. Ambulatory exam with a normal based, steady gait. PSYCH: Tearful throughout encounter.
== END 2022-12-20 15:19 | disposition home or self-care (01) ==
PROVIDERS: Emergency Provider Nurse Practitioner Family; PCP Emergency Medicine
DX: F41.9 Anxiety disorder, unspecified (principal); F17.210 Nicotine dependence, cigarettes, uncomplicated; F12.90 Cannabis use, unspecified, uncomplicated
CPT/HCPCS: 99211; G0463

== ENCOUNTER 2023-12-22 17:32 | Emergency (ER) | payer MEDICAID, SELFPAY ==
--- NOTE | 2023-12-22 18:01 | PC.NURSE ---
left before seeing provider and did not notify staff.
== END 2023-12-23 04:51 | disposition left against medical advice (07) ==
PROVIDERS: PCP Emergency Medicine
DX: M25.561 Pain in right knee (principal)
CPT/HCPCS: 99199

== ENCOUNTER 2023-12-23 11:09 | Emergency (ER) | payer SELFPAY ==
--- NOTE | ~2023-12-23 | XR_ITS ---
EXAMINATION: XR knee RT 3V DATE: 12/23/2023 11:31 INDICATION: Right knee pain under the patella. TECHNIQUE: AP, oblique and lateral views of the right knee were obtained COMPARISON: None. FINDINGS: Alignment is normal. No fracture. Joint spaces appear normal on nonweightbearing imaging. No osteoph ytosis, cortical erosions or degenerative subarticular changes. No right knee joint effusion. Soft ti ssues are unremarkable. IMPRESSION: 1. Negative right knee radiographs. Reviewed, dictated and finalized at location A.
[2023-12-23 11:11] VITALS: BP 125/69; PULSE 83; RESP 16; TEMP 36.6; O2SAT 100
--- NOTE | 2023-12-23 12:13 | ED.LOWEXIN ---
HPI - Extremity Injury (Lower) General Chief Complaint: Extremity Injury, Lower Stated Complaint: R knee pain Time Seen by Provider: 12/23/23 11:14 History of Present Illness HPI Narrative: 38-year-old female history of anxiety presents emergency room for evaluation of right knee pain. Patient states she was walking yesterday and felt a pop in her right knee. Sources and joint instability with walking. Placed her knee in a soft knee immobilizer and has been taking Aleve with some improvement of her symptoms. patient describes pain as dull and throbbing Related Data Home Medications Medication Instructions Recorded Confirmed Depo-Provera Contraceptive 12/20/22 Allergies Allergy/AdvReac Type Severity Reaction Status Date / Time sulfamethoxazole Allergy Unknown ITCHING, Verified 12/22/23 17:38 HIVES trimethoprim Allergy Unknown ITCHING, Verified 12/22/23 17:38 HIVES Malt Allergy Intermediate RASH Uncoded 12/22/23 17:38 Review of Systems Review of Systems: ROS unremarkable except where noted in HPI PMFSH Past Medical History Medical History Abdominal pain Anxiety Dysphagia Dysphagia H. pylori infection Marijuana dependence Nausea and vomiting Tobacco dependence Social History Social History Smoking packs per day: 2 Smoking cigarettes per day: 40.0 Years smoked: 20 Smoking pack-years: 40.00 Smoking status: Current every day smoker Tobacco type: cigarettes Alcohol intake: never Substance use: current Substance use type: prescription drug Living arrangements: with family Gender identity (if verbalized by the patient): Female Spiritual care concerns: No Exam Narrative: GENERAL: Well-appearing, well-nourished, no physical limitations, and in no acute distress. HEAD: Normocephalic, atraumatic. EYES: Conjunctivae normal, PERRLA and EOMI. CHEST: Clear to auscultation. No respiratory distress. No wheezes rales or rhonchi. HEART: Regular rate and rhythm. No murmur heard. Normal peripheral pulses. EXTREMITIES: right knee: TTP to inferior surface, no joint laxity, No STS, negative anterior posterior/drawer signs, no pain with valgus or varus pressure. no bony tenderness or abnormality SKIN: Warm, dry, no rash. No noted wounds NEURO: No focal deficits. Alert and oriented x3. MAEW. CN's II-XI intact bilaterally, antalgic gait PSYCH: Cooperative. Normal mood and affect. Course Vital Signs Vital signs: Vital Signs Temperature 36.6 C 12/23/23 11:11 Pulse Rate 83 12/23/23 11:11 Respiratory Rate 16 12/23/23 11:11 Blood Pressure 125/69 12/23/23 11:11 Pulse Oximetry 100 12/23/23 11:11 Oxygen Delivery Room Air 12/23/23 11:11 Temperature 36.6 C 12/23/23 11:11 Pulse Rate 83 12/23/23 11:11 Respiratory Rate 16 12/23/23 11:11 Blood Pressure 125/69 12/23/23 11:11 Pulse Oximetry 100 12/23/23 11:11 Oxygen Delivery Room Air 12/23/23 11:11 Discharge Plan Discharge Clinical Impression: Acute pain of right knee Patient Disposition: Home, Self-Care Condition: Stable Instructions: Antibiotic Form Prescriptions: No Action Depo-Provera Contraceptive Follow-up/Referrals: Matthew Todd MD [Physician] - Yovany Gonzalez MD [Primary Care Provider] - Time of Disposition: 12:19
== END 2023-12-23 12:29 | disposition home or self-care (01) ==
PROVIDERS: Emergency Provider Nurse Practitioner Family; PCP Emergency Medicine
DX: M25.561 Pain in right knee (principal); F17.210 Nicotine dependence, cigarettes, uncomplicated
CPT/HCPCS: 73562; 99283

== ENCOUNTER 2024-01-29 12:31 | Outpatient (CLI) | payer MEDICAID, SELFPAY ==
--- NOTE | ~2024-01-29 | MR_ITS ---
MRI of the right knee Clinical history: Pain Technique: Coronal proton density and proton density-weighted images, sagittal proton-density and T2 fat-sat images, and axial proton-density fat-saturated images were acquired. Findings: Anterior and posterior cruciate ligaments are intact. Medial collateral ligament and the la teral collateral ligament complex are intact. Popliteus tendon is intact. Medial and lateral menisci are intact, without evidence of tear. There is minimal chondromalacia patella. Bone marrow signals are intact. Extensor mechanism intact. No significant joint effusion or Catalan's cyst. Impression: Minimal chondromalacia patella. No ligamentous injury or meniscal tear seen. Reviewed, dictated and finalized at location . Impression: Minimal chondromalacia patella. No ligamentous injury or meniscal tear seen.
== END 2024-01-29 12:32 | disposition home or self-care (01) ==
PROVIDERS: Visit Provider Orthopaedic Surgery
DX: S83.006A Unspecified dislocation of unspecified patella, initial encounter (principal); S89.91XA Unspecified injury of right lower leg, initial encounter; X58.XXXA Exposure to other specified factors, initial encounter
CPT/HCPCS: 73721

== ENCOUNTER 2024-05-14 06:01 | Emergency (ER) | payer OTHER, SELFPAY ==
[2024-05-14 06:07] VITALS: BP 114/86; PULSE 84; RESP 18; TEMP 36.4; O2SAT 97
[2024-05-14 06:21] LABS: BEDSIDEPREGUCG Negative (Negative)
[2024-05-14 06:37] LABS: Add Urine Microscopic? YES; Appearance Urine Cloudy (Clear); Bacteria Urine Rare /hpf; Bilirubin Urine Negative (Negative); Blood Urine 3+ (Negative); Color Urine Dark Yellow (Yellow); Glucose Urine UA Negative (Negative); Ketones Urine Negative (Negative); Leukocyte Esterase Ur 2+ LEU/UL (Negative); Nitrate Urine Negative (Negative); Non Pathogenic Casts 0-2; Protein Urine 2+ mg/dL (Negative); Specific Grav Ur 1.017 (1.001-1.035); Squamous Epithelial Cell Urine Moderate /hpf (Few); WBC Urine >100 /hpf (0-3); pH Urine >=9.0 (5.0-9.0)
--- NOTE | 2024-05-14 07:32 | ED.GENADULT ---
HPI - General Adult General Chief complaint: Urogenital-Female Stated complaint: vaginal pressure, frequency, dribbling Time Seen by Provider: 05/14/24 06:55 History of Present Illness HPI narrative: 39-year-old female present to the emergency department for evaluation for increased urinary symptoms. Patient reports that last week she did have a procedure done by a OB Gyne. Patient was treated for bacterial vaginosis. Patient states that she did begin to develop increased urinary symptoms over the last few days. Patient denies pain with urination increased urinary frequency. Patient did attempt to follow-up with OB Gyne but they told her they could not prescribe anything over the phone and she was advised to present to the emergency department versus urgent care. Related Data Home Medications ?Medication ?Instructions ?Recorded ?Confirmed ?Last Taken ?Type Depo-Provera Contraceptive 12/20/22 02/04/24 Unknown History Allergies Allergy/AdvReac Type Severity Reaction Status Date / Time sulfamethoxazole Allergy Unknown ITCHING, Verified 05/14/24 06:03 HIVES trimethoprim Allergy Unknown ITCHING, Verified 05/14/24 06:03 HIVES Malt Allergy Intermediate RASH Uncoded 05/14/24 06:03 Review of Systems Review of Systems: All systems reviewed & are unremarkable except as noted in HPI and below PMFSH Past Medical History Medical History (Updated 05/14/24 @ 07:36 by Matthew Mcfadden MD) Anxiety and depression Wears glasses Tobacco dependence Marijuana dependence Anxiety Dysphagia Dysphagia Abdominal pain Nausea and vomiting H. pylori infection Surgical History Surgical History (Updated 01/07/24 @ 13:30 by Latasha Garnica) History of ankle surgery Left fib 3 rods 3 screws, per patient History of loop electrical excision procedure (LEEP) delivery delivered History of tubal ligation Family History Family History (Updated 01/07/24 @ 13:30 by Latasha Garnica) Unknown Hypertension Diabetes mellitus High cholesterol Social History Social History Smoking packs per day: 2 Smoking cigarettes per day: 40.0 Years smoked: 20 Smoking pack-years: 40.00 Smoking status: Current every day smoker Tobacco type: cigarettes Alcohol intake: never Substance use: current Substance use type: prescription drug Living arrangements: with family Gender identity (if verbalized by the patient): Female Spiritual care concerns: No Exam Narrative: APPEARANCE: Well appearing, no pain, no distress, well-nourished. HEAD: normocephalic, atraumatic. EYES: PERRLA/EOMI, conjunctivae clear. NOSE: Normal no drainage EARS:TMS clear with good light reflex. THROAT: Pharynx clear, no exudate. NECK: Supple. No adenopathy, no masses. RESPIRATORY: Airway patent, respirations nonlabored. Clear to auscultation bilaterally, no rales, rhonchi, wheezing. CARDIOVASCULAR: Regular rate and rhythm without murmurs rubs or gallops. ABDOMINAL: Soft, nontender, nondistended, normal bowel sounds MUSCULOSKELETAL: Moves all extremities. Strength/ROM intact, No edema, No calf tenderness. NEURO: Alert. Cranial nerves II through XII intact. Grossly intact SKIN: Warm, dry. Normal Color Course Vital Signs Vital signs: Vital Signs Temperature 97.6 F 05/14/24 06:07 Pulse Rate 84 05/14/24 06:07 Respiratory Rate 18 05/14/24 06:07 Blood Pressure 114/86 05/14/24 06:07 Pulse Oximetry 97 05/14/24 06:07 Oxygen Delivery Room Air 05/14/24 06:07 Temperature 97.6 F 05/14/24 06:07 Pulse Rate 84 05/14/24 06:07 Respiratory Rate 18 05/14/24 06:07 Blood Pressure 114/86 05/14/24 06:07 Pulse Oximetry 97 05/14/24 06:07 Oxygen Delivery Room Air 05/14/24 06:07 Medical Decision Making [facility] Narrative Medical decision making narrative: 31-year-old female present to the emergency department for evaluation for increased urinary symptoms. Patient does have greater than 100 white blood cells on her urine leukocyte esterase positive. Urine culture was ordered. Due to patient complaining of urinary symptoms she is being started on antibiotics. Patient was started on Keflex emergency department provided Pyridium for symptom control for home. Patient was also strongly encouraged to have close follow-up with OB Gyne. Differential Diagnosis Differential Diagnosis: UTI, kidney stone, vaginal bleeding Vital Signs Vital Signs: Vital Signs Temperature 97.6 F 05/14/24 06:07 Pulse Rate 84 05/14/24 06:07 Respiratory Rate 18 05/14/24 06:07 Blood Pressure 114/86 05/14/24 06:07 Pulse Oximetry 97 05/14/24 06:07 Oxygen Delivery Room Air 05/14/24 06:07 Temperature 97.6 F 05/14/24 06:07 Pulse Rate 84 05/14/24 06:07 Respiratory Rate 18 05/14/24 06:07 Blood Pressure 114/86 05/14/24 06:07 Pulse Oximetry 97 05/14/24 06:07 Oxygen Delivery Room Air 05/14/24 06:07 Lab Data Lab results reviewed: Yes I reviewed the patient's lab results. Labs: Lab Results 05/14/24 05/14/24 Range/Units 06:17 06:19 Urine Color Dark yellow (Yellow) Urine Appearance Cloudy H (Clear) Urine pH >=9.0 H (5.0-9.0) Ur Specific [place] 1.017 (1.001-1.035) Urine Protein 2+ H (Negative) mg/dL Urine Glucose (UA) Negative (Negative) mg/dL Urine Ketones Negative (Negative) mg/dL Ur Blood (Man) 3+ H (Negative) Urine Nitrate Negative (Negative) Urine Bilirubin Negative (Negative) Urine Urobilinogen 1.0 (<2.0) mg/dL Leukocyte Esterase Rfl 2+ H (Negative) YAMEL/UL Urine RBC 11-20 H (0-2) /hpf Urine WBC >100 H (0-3) /hpf Ur Squamous Epith Cells Moderate (Few) /hpf Urine Bacteria Rare /hpf Urine Casts 0-2 POC Urine HCG, Qual Negative (Negative) Discharge Plan Discharge Clinical Impression: Urinary tract infection Patient Disposition: Home, Self-Care Condition: Stable Instructions: Antibiotic Form, Urinary Tract Infection in Women (ED), Dysuria (ED) Additional Instructions: Increase your water intake. Antibiotics as directed until completed. Pyridium as needed for urinary symptoms. Continue have close follow-up with OB Gyne. If you have any worsening symptoms and please call or return to the emergency department. Patient Language: [place] Islander Prescriptions: New cephalexin 500 mg capsule 500 mg PO Q8H 7 Days Qty: 21 0RF phenazopyridine [Pyridium] 100 mg tablet 100 mg PO TID PRN (Reason: pain) Qty: 6 0RF No Action Depo-Provera Contraceptive Follow-up/Referrals: PHYSICIAN,CABINET ABRASIVE SANDBLASTER [Primary Care Provider] -
[2024-05-14] MEDS: PHENAZOPYRIDINE HCL 100 MG TABLET PO (07:43)
[2024-05-14] MEDS: CEPHALEXIN 500 MG CAPSULE PO (07:43)
--- OUTSIDE RECORDS SUMMARY | 2024-05-19 08:24 | XMS_ITS | Clinical Summary ---
Author Organization [facility] Address [address] [place] [address] Care Team Providers Care Student Finance Advisor Name Role Phone Yovany Gonzalez MD Primary Care Provider [phone] Source Comments [facility],non-owned Affiliates and Associated Physician Practices is amultiple site organization consisting of ambulatory clinics and hospital sitesin [place], [place], [place]. This disclosure is being madepursuant to the Care Everywhere program and may not contain all information available regarding this patient. Last updated 18.[employer] [facility] Allergies Active Allergy Reactions Criticality Noted Date Comments Sulfamethoxazole W-Trimethoprim Anaphylaxis High Malt Skin Reactions Medium 12/30/2012 Medications * Be aware that medications may not be up to date on this document. Alwaysverify current medications with the patient. Medication Sig Dispensed Refills Start Date End Date Status Ddemyrzv-Bsq-Mf-FA ( VITAMIN WITH IRON) tablet Take 1 tablet by mouth once daily Active ferrous sulfate 325 (65 FE) MG tablet Take 325 mg by mouth once daily Active vitamin E (TOCOPHERYL) 400 UNIT capsule Take 400 Units by mouth 3 times daily Active riboflavin 400 MG capsuleIndications :Headache prevention Take 1 capsule by mouth once daily Reasons: Headache prevention 100 capsule 3 01/20/2018 Active Active Problems Problem Noted Date Diagnosed Date Bicornate uterus 01/20/2018 Twin , mate stillborn, born in hospital, delivered by delivery 01/20/2018 History of loop electrical excision procedure (L EEP) 01/20/2018 History of benign breast tumor 01/20/2018 History of benign breast biopsy 01/20/2018 Abnormal genetic test during 8 Epidermal cyst 12/30/2012 Family History Medical History Relation Name Comments Cancer Maternal Aunt Cancer - Other Maternal Grandfather Cancer Maternal Grandmother Cancer Maternal Uncle Arthritis - Rheumatoid Mother Cancer - Other Mother Allergy (Severe) Neg Hx CVA Neg Hx Cancer - Breast Neg Hx Cancer - Skin, Melanoma Neg Hx Cancer - Skin, Non Melanoma Neg Hx Eczema Neg Hx Hemophilia Neg Hx Psoriasis Neg Hx Rashes/Skin Problems Neg Hx Relation Name Status Comments Maternal Aunt Maternal Grandfather Maternal Grandmother Alive Maternal Uncle Mother Alive Social History Tobacco Use Types Packs/Day Years Used Date Smoking Tobacco: Former Cigarettes Q uit: 11/2017 Smokeless Tobacco: Never Alcohol Use Standard Drinks/Week Comments No 0 (1 standard drink = 0.6 oz pur e alcohol) Sex and Gender Information Value Date Recorded Sex Assigned at Not on file Gender Identity Not on file Sexual Orientation Not on file Last Filed Vital Signs Vital Sign Reading Time Taken Comments Blood Pressure 120/54 01/20/2018 10:40 AM CDT Pulse 70 01/20/2018 10:40 AM CDT Temperature - - Respiratory Rate - - Oxygen Saturation 98% 12/30/2012 1:59 PM CDT Inhaled Oxygen Concentration - - Weight 63.2 kg (139 lb 6.4 oz) 01/20/2018 10:40 AM CDT Height 157.5 cm (5' 2 ) 01/20/2018 10:40 AM CDT Body Mass Index 25.5 01/20/2018 10:40 AM CDT Plan of Treatment Health Maintenance Due Date Last Done Comments PAP SMEAR 1986 HIV SCREENING 2001 HEPATITIS C SCREENING 01/07/2004 DTAP/TDAP/TD VACCINES (1 - Tdap) 2005 HEPATITIS B VACCINE (1 of 3 - 19+ 3-dose series) 2005 COVID-19 VACCINE ( - 2023-2 5 season) 2023 INFLUENZA VACCINE (#1) 2023 DEPRESSION SCREENING 04/27/2024 ZOSTER VACCINE (1 of 2) 01/12/2036 HIB VACCINE Aged Out No longer eligi ble based on patient's age to complete this topic HPV VACCINE Aged Out No longer eligi ble based on patient's age to complete this topic MENINGOCOCCAL (Group B) VACCINE Aged Out No longer eligible based on patient's age to complete this topic MENINGOCOCCAL VACCINE Aged Out No kimani josef eligible based on patient's age to complete this topic PNEUMOCOCCAL VACCINE Aged Out No long er eligible based on patient's age to complete this topic Care Teams Student Finance Advisor Relationship Specialty Start Date End Date Yovany Gonzalez MD [address] [address] PCP - General 12/31/21
--- OUTSIDE RECORDS SUMMARY | 2024-05-19 08:25 | XMS_ITS | Clinical Summary ---
Author Organization [facility] Address [address] [place] [address] Phone Care Team Providers Care Residential Program Coordinator Name Role Phone Yovany Gonzalez MD Unavailable Agapito Starks Primary Care Provider [phone] Allergies Active Allergy Reactions Criticality Noted Date Comments Sulfamethoxazole-Trimethop rim Anaphylaxis,Hives,Shortness of breath High 10/26/2017 Medications ibuprofen (ADVIL,MOTRIN) 200 mg tab/cap Take 400 mg by mouth every 6 (six) hours as needed for pain Active oxyCODONE (ROXICODONE) 5 mg immediate release tabletIndication s:Pain Take 1 tablet (5 mg total) by mouth every 4 (four) hours as needed for pain 10 tablet 01/30/2021 Active Active Problems Problem Noted Date Diagnosed Date Elbow mass, left 01/18/2021 Overview (01/18/2021): Added automatically from request for surgery [id number] Bicornate uterus 01/20/2018 History of benign breast tumor 01/20/2018 History of benign breast biopsy 01/20/2018 History of loop electrical excision procedure (L EEP) 01/20/2018 Twin , mate stillborn, born in hospital, delivered by delivery 01/20/2018 Fibroadenoma, left 11/10/2017 Mastodynia 11/03/2017 Amenorrhea 03/26/2017 Depression, major, recurrent, moderate 7 Anxiety disorder, unspecified 07/11/2015 Immunizations Name Administration Dates Next Due Influenza, Quadrivalent, Spl it, Preservative Free, Intramuscular 02/24/2018 Surgical History Surgery Date Site/Laterality Comments CERVICAL BIOPSY W/ LOOP ELECTRODE EXCISION FEMUR FRACTURE SURGERY Left age 14; dajuan and 3 screws TUBAL LIGATION 04/27/2018 - 04/26/2019 SECTION 04/27/2018 - 04/26/2019 x2 BREAST BIOPSY Left Benign Medical History Medical History Date Comments Anxiety Depression Delivery outcome of twins, one liveborn and one stillborn Elbow mass, left Family History Medical History Relation Name Comments Drug abuse Brother 1 Drug abuse Brother 2 Drug abuse Brother 3 Drug abuse Brother 4 Drug abuse Brother 5 Mental illness Daughter COPD Father Heart failure Father Cancer Maternal Grandfather COPD Maternal Grandmother Cancer Maternal Grandmother Cancer Mother Rheum arthritis Mother COPD Paternal Grandmother Cancer Paternal Grandmother Drug abuse Sister No Known Problems Son Relation Name Status Comments Brother 1 Alive Brother 2 Alive Brother 3 Alive Brother 4 Alive Brother 5 Alive Daughter Alive Father Alive Maternal Grandfather Maternal Grandmother Alive Mother Alive Paternal Grandmother Alive Sister Alive Son Alive Social History Tobacco Use Types Packs/Day Years Used Date Smoking Tobacco: Every Day Cigarettes 0.5 20 Smokeless Tobacco: Never Comments:last cig at 0630 AUDIT-C Answer Date Recorded Q1: How often do you have a drink containing alc ohol? Never 01/30/2021 Average Number of Drinks Not on file 021 Q3: How often do you have si x or more drinks on one occasion? 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 Not on file Not on file Obstetrics History Last Filed Vital Signs Vital Sign Reading Time Taken Comments Blood Pressure 103/56 01/30/2021 11:30 AM CDT Pulse 57 01/30/2021 11:30 AM CDT Temperature 36.2 ??C (97.1 ??F) 01/30/2021 11:00 AM C DT Respiratory Rate 16 01/30/2021 11:30 AM CDT Oxygen Saturation 98% 01/30/2021 11:30 AM CDT Inhaled Oxygen Concentration - - Weight 54.4 kg (120 lb) 01/21/2021 1:38 PM CDT Height 157.5 cm (5' 2 ) 01/21/2021 1:38 PM CDT Body Mass Index 21.95 01/21/2021 1:38 PM CDT Plan of Treatment Not on file Medical Devices Implanted Type Area Water Plant Pump Operator Supervisor Device Identifier Shelf Expiration Date Model / Serial / Lot Left Femur Dajuan And Screws X3 Left: Leg Description:Dajuan and 3 screws Breast Marker Left: Breast Description:Breast marker fr om Breast biopsy Insurance [facility] Care Teams Residential Program Coordinator Relationship Specialty Start Date End Date Agapito Starks PA PCP - General Family Medicine 01/22/22 Yovany Gonzalez MD Referring Physician Emergency Medicine 01/21/21
--- OUTSIDE RECORDS SUMMARY | 2024-05-19 08:25 | XMS_ITS | Referral Summary ---
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 History of benign breast [...] Quadrivalent, Spl it, Preservative Free, Intramuscular 02/24/2018 Social History Tobacco Use Types Packs/Day Years [...] on file 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 Gender Identity Female 01/31/2021 7:44 PM CDT Sexual Orientation Straight 01/31/2021 7: 44 PM CDT 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
--- OUTSIDE RECORDS SUMMARY | 2024-05-19 08:25 | XMS_ITS | Patient Health Summary ---
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 This disclosure is being madepursuant to the Care Everywhere program and may not contain all information available regarding this patient. Last updated 18.[facility] Allergies * Sulfamethoxazole W-Trimethoprim(Anaphylaxis) -High Criticality * Malt(Skin Reactions) -Medium Criticality Medications * Be aware that medications may not be up to date on this document. Alwaysverify current medications with the patient. 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 Twin , mate stillborn, born in hospital, delivered by delivery 01/20/2018 History of loop electrical excision procedure (L EEP) 01/20/2018 History of benign breast tumor 01/20/2018 History of benign breast biopsy 01/20/2018 Abnormal genetic test during 8 Epidermal cyst 12/30/2012 Social History Tobacco Use Types Packs/Day Years [...] Mass Index 25.5 01/20/2018 10:40 AM CDT Procedures * SONOGRAM - TRANSVAGINAL(Performed 02/02/2018) Performed for Epidermal cyst, Bicornate uterus, History of loop electrical excision procedure (LEEP), Abnormal genetic test during * SONOGRAM - COMPLETE(Performed 01/20/2018) Performed for Encounter for anatomic survey (HCC), Abnormal genetic test during * CULTURE STREP GROUP A(Performed 08/21/2013) * DERMATOPATHOLOGY(Performed 12/30/2012) * CULTURE AEROBIC(Performed 09/23/2012) * CULTURE AEROBIC(Performed 09/12/2012) * DERMATOPATHOLOGY(Performed 09/09/2012) Results * SONOGRAM - TRANSVAGINAL (02/02/2018 11:35 AM CDT) Anatomical Region Laterality Modality Other 02/02/2018 11:3 5 AM CDT Narrative 02/02/2018 12:35 PM CDT ? [facility] ?PHONE: ??FAX: Pat. Name: ?NEETU MCFADDEN. No: ?[id number] Study Date: ?? 02/02/2018 ??11:35am , Age: ? 1985, 34 Pregnancies: ?? 2, Para 2 Height: ? 62 in Weight: ? 140 lb LMP: ?08/25/2017 GA by LMP: ?23w0d GA by Base: ?? 21w6d ?? CEZAR: 06/09/2018 GA Selected: ??21w6d (From [facility]) CEZAR: ?06/09/2018 Referring MD: Willie Doty MD Pet Crematory Worker: ??Vanessa Alonzo RDMS CPT4: ? 39613,28903 BMI: ?25.6 Hist/Ind: ? 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 Irene Sanchez MD <Electronic Signature> ??02/02/2018 12:35pm Irene Sanchez MD [facility] ORDERABLES * SONOGRAM - COMPLETE (01/20/2018 11:36 AM CDT) Anatomical Region Laterality Modality Other 01/20/2018 11:3 6 AM CDT Narrative 01/20/2018 1:04 PM CDT ? [facility] ?PHONE: ??FAX: Pat. Name: ?NEETU MCFADDEN Carley Luu. No: ?[id number] Study Date: ?? 01/20/2018 ??11:36am , Age: ? 1985, 33 Pregnancies: ?? 2, Para 2 Height: ? 62 in Weight: ? 140 lb LMP: ?08/25/2017 unsure GA by LMP: ?21w1d GA by US: ? 20w2d ?? CEZAR: 06/07/2018 GA Selected: ??20w0d (Outside Scan) CEZAR: ?06/09/2018 Referring MD: Willie Doty MD Pet Crematory Worker: ??Mara Zeng, MUNA, RDCS CPT4: ? 50249,55210 BMI: ?25.6 Hist/Ind: ? Anatomic Screen ?Sequetial Screen + DS/ NIPT low risk ?Prior twin with Demise in 3rd trimester ?Hx of LEEP ?Vaginal Bleeding today ?Septated Uterus vs Bicornuate ?Hx of ?Hx of Breast tumor-benign MEASUREMENTS & AGE ? GROWTH EVALUATION Measurement ??GA ? Range ? Srce %for GA Ratios ----- ---- ------- BPD ??4.7 cm 20w2d (44x9e-62k3a) Hadl BPD 65% FL/BPD 0.68 HC ??17.6 cm 20w1d (04u5t-80a2n) Hadl HC ??49% FL/AC ??0.20 AC ??15.8 cm 20w6d (02j1m-79v4s) Hadl AC ??74% HC/AC ??1.11 (1.06 - 1.25) FL ?? 3.2 cm 20w0d (37p8h-83a3s) Hadl FL ??46% CI ? 0.76 (0.70 - 0.86) HL ?? 3.1 cm 20w2d (53q4d-76r2t) Sonu HL ??55% Cere 2.1 cm 19w6d (65t7p-54n4t) Hill Cere46% GA for sonogram 20w2d (59s0s-68b8r) ?? Weight Estimate: based on (HL,BPD,HC,AC,FL,Cere) Avg ??Weight: 357 gm (305-409gm) Hadloc ? : 0lbs, 12oz ? Normal: 329 gm (246-411gm) Hadloc ? Wt% ? 75% for 20w0d Cervix: ??Length: 3.9 cm ??Approach: transvaginal ??Funneling: not present Heart Rate: 150 bpm Amniotic Fluid Index: 05.1cm (Deepest Pocket) EVAL, PLACENTA Presentation: cephalic Umbilical Cord: 3 Vessels Placenta: anterior Previa: no previa seen Heart Rate: 150 bpm Amniotic Fluid Volume: normal MATERNAL ANATOMY Myometrium: There is question of a uterine septum demonstrated on today's exam (width 1.5x length 6.7 cm). Endometrium: There is no abnormal uterine contour or conformation of the amniotic cavity to suggest a bicornuate uterus. Ovaries LxHxW (cm) Ovaries not clearly demonstrated. ??No adnexal masses. Anatomy!Normal!Abnormal!Suboptimal!Comments Cranium ?! ?? x ??! ?! ?! Mdl (CSP/Thal! ?? x ??! ?! ?! Ventricles ?? ! ?? x ??! ?! ?! Choroid Plexu! ?? x ??! ?! ?! Cerebellum ?? ! ?? x ??! ?! ?! Cisterna M. ??! ?? x ??! ?! ?! Nuchal Fold ??! ?? x ??! ?! ?! Profile ?! ?? x ??! ?! ?! Nasal Bone ?? ! ?? x ??! ?! ?! Lip ?! ?? x ??! ?! ?! Spine ?! ?? x ??! ?! ?! Lungs ?! ?? x ??! ?! ?! 4 Chamber Hea! ?? x ??! ?! ?! LVOT ? ! ?? x ??! ?! ?! RVOT ? ! ?? x ??! ?! ?! 3 Vessel View! ?? x ??! ?! ?! Cross-over ?? ! ?? x ??! ?! ?! Ductal Arch ??! ?? x ??! ?! ?! Aortic Arch ??! ?? x ??! ?! ?! Caval View ?? ! ?? x ??! ?! ?! Situs ?! ?? x ??! ?! ?! Diaphragm ?! ?? x ??! ?! ?! Stomach ?! ?? x ??! ?! ?! Bowel ?! ?? x ??! ?! ?! Kidneys ?! ?? x ??! ?! ?! Bladder ?! ?? x ??! ?! ?! 3 Vessel Cord! ?? x ??! ?! ?! Cord In! ?? x ??! ?! ?! Upper Extremi! ?? x ??! ?! ?! Hands ?! ?? x ??! ?! ?! Lower Extremi! ?? x ??! ?! ?! Feet ? ! ?? x ??! ?! ?! External Sarika! ?? x ??! ?! ?!Male CLINICAL SUMMARY Study Number: 1 A detailed anatomical screen was performed due to an abnormal aneuploidy screen result in this . ??The exam was technically adequate. A single fetus is identified in cephalic presentation. ??The measurements today are consistent with appropriate growth. ?? The CEZAR selected is based on prior ultrasound performed at 13 weeks ( confirmed ). ??The amniotic fluid volume is normal. ??The placenta is anterior and may partially insert on the area that could represent a uterine septum. ??No major malformations are seen, within the limitations of the exam. ??Ultrasound does not allow detection of all structural or chromosomal abnormalities. ?? ultrasound is limited in the ability to detect or exclude small, cardiac, septal defects. IMPRESSION: Single, live IUP at 20w0d Estimated size concordant with appropriate dating normal amniotic fluid Completed anatomical screen without demonstrated major malformations Possible septate uterus Reassuring cervical length RECOMMEND: Serial cervical length every 2 weeks until 24 weeks Serial growth every 4 weeks Thank you for allowing us the opportunity to care for your patient. Dina Garcia MD <Electronic Signature> ??01/20/2018 01:02pm R Saeid Doty MD [facility] ORDERABLES * CULTURE STREP GROUP A (08/21/2013 7:42 PM CDT) Culture Beta Strep No Growth of Groups A, C or G Beta Streptococc us. [facility] Throat swab (specimen) ENTIRE THROAT (SURFACE REGION OF NECK) / Unknown 08/21/2013 7:42 PM CDT 08/22/2013 9:10 PM CDT Narrative [facility] - 08/24/2013 10:12 AM CDT DengSpecimen#[id number] Deng Loc/Rm/Bed: EXPCARE C// Historical Provider LAB - MICROBIOLOG Y ORDERABLES [address] [phone] * PATHOLOGY TISSUE FOR DERMATOLOGY (12/30/2012 12:00 AM CDT) Only the most recent of2 resultswithin the time period is included. Result CASE: [id number] PATIENT: NEETU MCFADDEN PATHOLOGIC DIAGNOSIS: Left lower back: EPIDERMOID CYST WITH SURROUNDING DERMAL FIBROSIS (see microscopic description) CLINICAL DATA: Cyst and scar. Check margins. Previous Bx: [id number]. GROSS DESCRIPTION: Received is one formalin filled container labeled with the patient's name and designated left lower back. The specimen consists of a 84w0t7tn cystic structure attached to skin. The specimen is serially sectioned and is submitted in cassettes 1-2. Jar 0. MICROSCOPIC DESCRIPTION: Within the dermis, there is a space lined by epithelium that resembles normal epidermis and the infundibular portion of the hair follicle. There is surrounding dermal fibrosis. ??The cyst is not present at the sampled margin of the specimen. Electronically signed out by Virginie Weir M.D., PhD. 01/04/2013 10:19:31AM [facility] Comment: Performed at: Dermatopathology Laboratory [facility] Department of Dermatology [address] [place] [address] Phone number: [phone] Toll Free: [phone] FAX: [phone] Skin (tissue) specimen (specimen) 12/30/2012 12/31/2012 Narrative [facility] - 01/04/2013 10:20 AM CDT María Miller MD Preferred Lab:->Derm-Path Specimen A: Type->Excision ?Site->left lower back ?History->27 yo wf w/ biopsy-proven cyst here for excision ?Impression->cyst and scar ?Check Margins:->Yes [id number] ?Prior Biopsy->Yes Lars Shultz MD LAB - PATHOLOGY/CYTO LOGY ORDERABLES [facility] [address] [place] [address]. [address] [place] [address], [facility] [phone] * CULTURE AEROBIC (09/23/2012 10:41 AM CDT) Only the most recent of2 resultswithin the time period is included. Culture SEE NOTE [facility] Comment: ??CULTURE, AEROBIC BACTERIA ?MICRO NUMBER: ?[id number] ??TEST STATUS: ? FINAL ??SPECIMEN SOURCE: ?? FLUID, ABDOMINAL ??SPECIMEN QUALITY: ??ADEQUATE ??RESULT: ?Growth of skin gage (note: Growth does not ? include S. aureus, beta-hemolytic Streptococci ? or P. aeruginosa). NO COLLECTION DATE RECEIVED. WE HAVE USED THE DATE THE SPECIMEN WAS RECEIVED BY THIS LABORATORY THE COLLECTION DATE. IF THIS IS INCORRECT, PLEASE CONTACT CLIENT SERVICES. PHONE NUMBER: [phone] Test Performed at: [facility] [address] ??[id number] GRICELDA AGUILA DO, MPH Abdominal Fluid (Skin, Other) 09/23/2012 10:41 AM CDT 09/24/2012 12:59 AM CDT Narrative [facility] - 09/26/2012 11:00 AM CDT Specimen Type->Abdominal fluid Lars Shultz MD LAB - MICROBIOLOGY O RDERABLES [facility] Care Teams Oxygen Plant Operator Relationship Specialty Start Date End Date Yovany Gonzalez MD [address] [place] [id number] PCP - General 12/31/21
--- OUTSIDE RECORDS SUMMARY | 2024-05-19 08:25 | XMS_ITS | Data Portability ---
Author Organization [facility] Address [address] [place] [address] Assessment Encounter Date Assessment Date Assessment LastModified by Organization Details LastModified Time 01/22/2023 01/22/2023 Annual gynecological exam performed. Patient will come back in a year unless there are new symptoms. [email or web address] Not available 01/22/2023 10:22:52 04/06/2024 04/06/2024 The patient and I disscussed the various causes of abnormal uterine bleeding, including polyps, fibroids, hyperplasia, atypia, anovulation, etc. We reviewed the typical evaluation with labs, pelvic US and possible endometrial biopsy. Briefly discussed the options available for treatment (depending on the results of evaluation) such as hormonal treatment (OCPs, progestins), Mirena, endometrial ablation, and surgery. We spent more than 30 minutes face to face. [email or web address] Not available 04/06/2024 15:52:51 Plan of Treatment Reminders Order Date Submit Date Provider Last Modified By Organization Details Last Modified Time Details Appointments INJECTION 2024 02:00P M RN SCHEDULE Not available Not available Not available Lab unlisted lab - 17-oh progester one, lc/MS/MS 2023 024 [facility] (Lab), [address], [place], [address], 04/12/2024 03:01:12 dhea-sulf ate, serum 2023 024 [facility] (Lab), [address] [place], [address], 04/12/2024 03:01:09 hormone panel, serum or plasma 2023 024 [facility] (Lab), [address], [place], [address], 04/12/2024 03:01:10 HbA1c (hemoglob in A1c), blood 2023 [facility] (Lab), [address], [place], [address], 04/12/2024 03:01:10 progester one, serum 2023 [facility] (Lab), [address], [place], [address], 04/12/2024 03:01:09 prolactin , serum 2023 024 [facility] (Lab), [address] [place], [address], 04/12/2024 03:01:09 shbg (sex hormone-b inding globulin) , serum 2023 024 [facility] (Lab), [address] [place], [address], 04/12/2024 03:01:10 testoster one free/test osterone total, ratio, serum 2023 024 [facility] (Lab), [address] [place], [address], 04/12/2024 03:01:12 TSH, serum or plasma 2023 [facility] (Lab), [address] [place], [address], 04/12/2024 03:01:09 test, urine 2023 [email or web address] [facility], [address], [address], [place], [address], 04/15/2024 15:49:33 Referral None recorded. Procedures None recorded. Surgeries None recorded. Imaging US, pelvis, complete 2023 024 [email or web address] [facility], [address], [address], [place], [address], 04/06/2024 16:41:53 Medication Orders Xanax 2 mg tablet [address] [facility], [address] [place], [place], [id number], 04/06/2024 15:57:34 Lexapro 20 mg tablet [address] [facility]166, [address] [place] [address], [id number], 04/06/2024 15:57:18 Depo-Prov era 150 mg/mL intramusc ular syringe [address] [facility] #61778, [address] [place], [place], [id number], 04/15/2024 15:48:18 metronida zole 500 mg tablet [address] [facility] #78480, [address] [place], [place], [id number], 04/06/2024 15:57:31 Diflucan 150 mg tablet [address]22 [address]279, [address] [place], [place], [id number], 04/06/2024 15:57:20 Depo-Prov era 150 mg/mL intramusc ular suspensio n 2023 024 [email or web address] Not available 04/06/2024 18:59:04 Patient TargetsNo targets recorded. Patient InstructionsNo instructions recorded. Reason for Referral None Reported. Results Created Date Observation Date Name Description Value Unit Range Abnormal Flag Note LastModifiedBy Organization Detail LastModifiedTime 01/23/20 23 01/22/2023 BHCG, QUANT ITATI VE B-HCG <0.2 mIU/m L This assay was perfo rmed using [employer] Corpo ratio n reage nts and test kits. Value s obtai yaneth with other assay metho ds or kits canno t be used inter alicia eably . Refer ence Range s: Non-p regna nt, preme nopau sandy women : 0.0-5 .3 mIU/m L Postm enopa usal women : 0.0-7 .0 mIU/m L Saige l Pregn jc: Gesta анна l Age bHCG Conc. - mIU/m L 3 Weeks 5.8 - 71.7 4 Weeks 9.5 - 750 5 Weeks 217-7 138 6 Weeks 158 - 31,79 5 7 Weeks 3,697 - 162,5 63 8 Weeks 32,06 5 - 149,5 71 9 Weeks 63,80 3 - 151,4 10 10 Weeks 46,50 9 - 186,9 77 12 Weeks 27,83 2 - 210,6 12 14 Weeks 13,95 0 - 62,53 0 15 Weeks 12,03 9 - 70,97 1 16 Weeks 9,040 - 56,45 1 17 Weeks 8,175 - 55,86 8 18 Weeks 8,099 - 58,17 6 Not Available [facility] (Lab) [address], [place], [address], 01/23/2023 04:11:08 01/23/20 23 01/22/2023 IMAGE GUIDE D PAP AND HPV REGAR DLESS image guided Pap, HPV regardless of Pap result SEE RESULT S BELOW abnormal CASE REPOR T: Cytol ogy Gynec ologi rocio Repor t Case: [id number] Autho kathrin g Provi allyn: Daly Doty MD Colle cted: 01/22 1712 Order ing Locat ion: [place] Patho logy Recei gerardo: 01/23 0720 First Scree n: Fredy z, Car am, CT Patho logis t: Neil Mckinney MD Speci men: Hanane perea Pap - Image d, Cervi x STATE MENT OF ADEQU ACY: Satis facto ry for evalu ation Trans forma tion zone compo nent absen t FINAL DIAGN OSIS: Epith elial Cell Abnor malit y, Squam ous Cell: 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 Elect marilia villanueva jose d by Neil Mckinney MD on 2022 at 4:55 PM ----- ----- ----- ----- ----- ----- ----- ----- ----- ----- ----- ----- ----- ----- ----- ----- ----- ---- HPV RESUL TS: HPV mRNA E6/E7 : Posit miguelito - HPV mRNA Detec mena HPV GENOT YPE 16 (JACKLYN) : Not Detec mena HPV GENOT YPE 18/45 (JACKLYN) : Not Detec mena NOTE: This high risk HPV mRNA assay detec ts fourt een high- risk HPV types (16, 18, 31, 33, 35, 39, 45, 51, 52, 56, 58, 59, 66, 68) witho ut diffe renti ation . This assay can diffe renti ate HPV 16 from HPV 18/45 , but does not diffe renti ate betwe en HPV 18 and HPV 45. A negat miguelito HPV 16, 18/45 genot ype assay resul t does not exclu de the possi bilit y of cytol ogic abnor malit ies or of futur e or under lying SELMA 1, SELMA 3 or cance r. COMME NT: This speci men was revie wed by a Cytot echno logis t and/o r Patho logis t (as indic ated in this repor t) after evalu ation using the Thinp rep Imagi ng Syste m. CLINI ROCIO INFOR MATIO N: Menst rual Statu s: LMP (if appli cable ): Clini rocio Histo ry/Pr eviou s Pap: Type of Neopl ethel (if appli cable ): Signi fican t Clini rocio Findi ngs: Other Histo ry: Hormo gary (if appli cable ): ELOISE BILLINGS FOLLO W-UP: Follo w up as warra nted, based on curre nt guide lines and indiv idual patie nt consi derat ions. Not Available [facility] (Lab) [address], [place], [address], 01/27/2023 18:00:08 02/21/2002/20/2023 CT/GC AND TRICH OMONA S VAGIN JOSEY (RRNA ), SWAB chlamydia trachomatis, PCR Negati ve negati ve Not Available [facility] (Lab) [address], [place], [address], 02/23/2023 10:32:19 02/21/20 23 02/20/2023 CT/GC AND TRICH OMONA S VAGIN JOSEY (RRNA ), SWAB neisseria gonorrhoeae, PCR Negati ve negati ve Not Available [facility] (Lab) [address], [place], [address], 02/23/2023 10:32:19 02/21/20 23 02/20/2023 CT/GC AND TRICH OMONA S VAGIN JOSEY (RRNA ), SWAB trichomonas vaginalis ribosomal RNA (rrna) Negati ve negati ve Not Available [facility] (Lab) [address], [place], [address], 02/23/2023 10:32:19 02/21/20 23 02/20/2023 VAGIN ITIS/ VAGIN OSIS, DNA PROBE jose r sp. detection, direct probe Negati ve negati ve Not Available [facility] (Lab) [address], [place], [address], 02/23/2023 10:32:19 02/21/20 23 02/20/2023 VAGIN ITIS/ VAGIN OSIS, DNA PROBE gardnerella vag. detection, direct probe Positi ve negati ve abnormal Not Available [facility] (Lab) [address], [place], [address], 02/23/2023 10:32:19 02/21/20 23 02/20/2023 VAGIN ITIS/ VAGIN OSIS, DNA PROBE trichomonas vag. detection, direct probe Negati ve negati ve Not Available [facility] (Lab) [address], [place], [address], 02/23/2023 10:32:19 05/06/19 24 05/06/2023 BHCG, QUANT ITATI VE B-HCG <0.2 mIU/m L This assay was perfo rmed using [employer] Corpo ratio n reage nts and test kits. Value s obtai yaneth with other assay metho ds or kits canno t be used inter alicia eably . Refer ence Range s: Non-p regna nt, preme nopau sandy women : 0.0-5 .3 mIU/m L Postm enopa usal women : 0.0-7 .0 mIU/m L Saige l Pregn jc: Gesta анна l Age bHCG Conc. - mIU/m L 3 Weeks 5.8 - 71.7 4 Weeks 9.5 - 750 5 Weeks 217-7 138 6 Weeks 158 - 31,79 5 7 Weeks 3,697 - 162,5 63 8 Weeks 32,06 5 - 149,5 71 9 Weeks 63,80 3 - 151,4 10 10 Weeks 46,50 9 - 186,9 77 12 Weeks 27,83 2 - 210,6 12 14 Weeks 13,95 0 - 62,53 0 15 Weeks 12,03 9 - 70,97 1 16 Weeks 9,040 - 56,45 1 17 Weeks 8,175 - 55,86 8 18 Weeks 8,099 - 58,17 6 Not Available [facility] (Lab) [address], [place], [address], 05/07/2023 03:43:56 04/06/20 24 04/06/2024 HEPAT ITIS C ANTIB TAMIKA SCREE N, REFLE X TO CONFI RMATI ON hepatitis C antibody Non-re active non-re active Antib odies to HCV Not Detec mena, does not exclu de the possi bilit y of expos ure to HCV. Not Available [facility] (Lab) [address], [place], [address], 04/12/2024 03:01:07 04/06/20 24 04/06/2024 HEPAT ITIS B SURFA CE ANTIG EN hepatitis B surface antigen Non-re active non-re active This assay was perfo rmed using [employer] Cor[employer] ratio n reage nts and test kits. Value s obtai yaneth with other assay metho ds or kits canno t be used inter alicia eably . Not Available [facility] (Lab) [address], [place], [address], 04/12/2024 03:01:08 04/06/20 24 04/06/2024 HIV 1/2 ANTIG EN/AN TIBOD Y, REFLE X CONFI RMATI ON HIV antigen/anti body Nonrea ctive nonrea ctive HIV-1 antig en and HIV-1 /HIV- 2 antib odies were not detec mena. No labor atory evide nce of HIV infec tion. Not Available [facility] (Lab) [address], [place], [address], 04/12/2024 03:01:08 04/06/20 24 04/06/2024 DHEA SULFA TE DHEA-sulfate 91 ug/dL Femal e Range s Age(y ) Range (ug/d L) 10-15 34-28 0 15-20 65-36 8 20-25 148-4 07 25-35 99-34 0 35-45 61-33 7 45-55 35-25 6 55-65 19-20 5 65-75 9-246 > 75 12-15 4 Not Available [facility] (Lab) [address], [place], [address], 04/12/2024 03:01:09 12/11/20 24 04/06/2024 PROGE STERO NE progesterone 0.30 NG/mL This assay was perfo rmed using [employer] Cor[employer] ratio n reage nts and test kits. Value s obtai yaneth with other assay metho ds or kits canno t be used inter alicia eably . Femal e Proge stero ne Range s: Folli cular phase 0.06- 0.89 ng/mL Ovula tion phase 0.12- 12.00 ng/mL Lutea l phase 1.83- 23.90 ng/mL Postm enopa usal <0.05 -0.13 ng/mL Healt hy Pregn ant Women 1st Trime ster 11.0- 44.30 2nd Trime ster 25.40 -83.3 0 3rd Trime ster 58.70 -214. 00 Not Available [facility] (Lab) [address] [place], [address], 04/12/2024 03:01:09 04/06/20 24 04/06/2024 TSH, REFLE X FREE T4 TSH 1.73 uIU/m L 0.30-5 .33 Not Available [facility] (Lab) [address], [place], [address], 04/12/2024 03:01:09 04/06/20 24 04/06/2024 PROLA CTIN prolactin, total 20.50 NG/mL 4.79-2 3.30 This assay was perfo rmed using [employer] Corpo ratio n reage nts and test kits. Value s obtai yaneth with other assay metho ds or kits canno t be used inter alicia eably . Not Available [facility] (Lab) [address] [place], [address], 04/12/2024 03:01:09 04/06/20 24 04/06/2024 FSH, LH, ESTRA DIOL estradiol 477.0 pg/mL This assay was perfo rmed using [employer] Corpo ratio n reage nts and test kits. Value s obtai yaneth with other assay metho ds or kits canno t be used inter alicia eably . Femal e Estra diol Range s: Folli cular phase 12.4- 233 pg/mL Ovula tion phase 41.0- 398 pg/mL Lutea l phase 22.3- 341 pg/mL Postm enopa usal <5-13 8 pg/mL Healt hy Pregn ant Women 1st Trime ster 154-3 243 pg/mL 2nd Trime ster 1561- 72762 pg/mL 3rd Trime ster 8525- >3000 0 pg/mL Not Available [facility] (Lab) [address] [place], [address], 04/12/2024 03:01:10 04/06/20 24 04/06/2024 FSH, LH, ESTRA DIOL FSH 3.8 mIU/m L This assay was perfo rmed using [employer] Corpo ratio n reage nts and test kits. Value s obtai yaneth with other assay metho ds or kits canno t be used [facility] . Femal es Folli cular : 3.5-1 2.5 mIU/m L Ovula tion: 4.7-2 1.5 mIU/m L Lutea l: 1.7-7 .7 mIU/m L Postm enopa use: 25.8- 134.8 mIU/m L Not Available [facility] (Lab) [address] [place], [address], 04/12/2024 03:01:10 04/06/20 24 04/06/2024 FSH, LH, ESTRA DIOL LH 8.4 mIU/m L This assay was perfo rmed using [employer] Corpo ratio n reage nts and test kits. Value s obtai yaneth with other assay metho ds or kits canno t be used [facility] . Femal es Mid-F ollic ular: 2.4-1 2.6 mIU/m L Mid-C ycle: 14.0- 95.6 mIU/m L Mid-L uteal : 1.0-1 1.4 mIU/m L Postm enopa use: 7.7-5 8.5 mIU/m L Not Available [facility] (Lab) [address] [facility], [place], [address], 04/12/2024 03:01:10 04/06/20 24 04/06/2024 HUMAN SEX HORMO NE CORY NG GLOBU YANI sex hormone binding globulin 118.9 nmole s/L 18.2-1 35.5 Not Available [facility] (Lab) [address], [place], [address], 04/12/2024 03:01:10 04/06/20 24 04/06/2024 HEMOG LOBIN A1C hemoglobin A1C 5.5 % 4.0-5. 6 The Ameri can Diabe jory Assoc iatio n recom mends that a prima ry goal of thera py shoul d be a HBA1C of < 7% and that physi cians shoul d reeva luate the treat ment regim en in patie nts with HBA1C value s consi stent ly > 8%. <5.7% Saige l 5.7 - 6.4% Incre ased risk for diabe jory >=6.5 % Diagn ostic of diabe jory <7.0% Goal of thera py >8.0% Actio n sugge sted Not Available [facility] (Lab) [address], [place], [address], 04/12/2024 03:01:10 04/06/20 24 04/06/2024 HERPE S SIMPL EX VIRUS TYPE 2 SPECI FIC AB, IGG herpes simplex virus 2 IgG Negati ve negati ve Not Available [facility] (Lab) [address], [place], [address], 04/12/2024 03:01:11 04/06/20 24 04/06/2024 HERPE S SIMPL EX VIRUS TYPE 2 SPECI FIC AB, IGG herpes simples virus 2 IgG, quant <0.2 ai 0.0-0. 8 Not Available [facility] (Lab) [address] [place], [address], 04/12/2024 03:01:11 04/06/20 24 04/06/2024 HERPE S SMPLE X VIRUS TYPE 1 SPECI FIC AB, IGG herpes simplex virus 1 IgG Positi ve negati ve abnormal Not Available [facility] (Lab) [address], [place], [address], 04/12/2024 03:01:11 04/06/20 24 04/06/2024 HERPE S SMPLE X VIRUS TYPE 1 SPECI FIC AB, IGG herpes simplex virus 1 IgG, quant >8.0 ai 0.0-0. 8 high Not Available [facility] (Lab) [address], [place], [address], 04/12/2024 03:01:11 04/06/20 24 04/06/2024 RPR SCREE N, REFLE X TITER /CONF IRMAT ION RPR screen Nonrea ctive nonrea ctive Not Available [facility] (Lab) [address], [place], [address], 04/12/2024 03:01:11 04/06/20 24 04/06/2024 HEPAT ITIS B CORE, IGM hepatitis B core IgM antibody Non-re active non-re active IgM anti- HBc not detec mena. Does not exclu de the possi bilit y of expos ure to or infec tion with HBV. Not Available [facility] (Lab) [address] [place], [address], 04/12/2024 03:01:12 04/06/20 24 04/06/2024 TESTO STERO NE, FREE( DIALY SIS) AND TOTAL (LC/M S/MS) testosterone , total 40 NG/dL 2-45 For addit ional keiko jean baptiste e refer to http: //marylin zelayaque stdia gnost [employer].c om/fa q/ Total Testo stero neLCM SMSFA Q165 (This link is being provi ded for infor noy nal/ educa анна l purpo ses only. ) This test was devel oped and its derek tical perfo rmanc e linh cteri stics have been deter mined by [employer] [facility] [place], [place]. It has not been clear ed or appro gerardo by the U.S. Food and Drug Admin istra tion. This assay has been valid ated pursu ant to the CLIA regul ation s and is used for clini rocio purpo ses. Not Available [facility] (Lab) [address] [place], [address], 04/12/2024 03:01:12 04/06/20 24 04/06/2024 TESTO STERO NE, FREE( DIALY SIS) AND TOTAL (LC/M S/MS) testosterone , free 2.1 pg/mL 0.1-6. 4 This test was devel oped and its derek tical perfo rmanc e linh cteri stics have been deter mined by [employer] o[employer] Enrique ls [place], [place]. It has not been clear ed or appro gerardo by the U.S. Food and Drug Admin istra tion. This assay has been valid ated pursu ant to the CLIA regul ation s and is used for clini rocio purpo ses. Perfo rming Organ izati on Infor matio n: Site ID: [id number] Name: Daniela Anthonyo ls [facility] toya Addre ss: [id number] [facility] [employer] [place], [place] Direc tor: Lyssa Beard MD PhD Not Available [facility] (Lab) [address] [place], [address], 04/12/2024 03:01:12 04/06/20 24 04/06/2024 17-OH PROGE STERO NE 17-hydroxypr ogesterone, lc/MS/MS 85 NG/dL Adult Femal e Refer ence Range s for 17-Hy droxy proge stero ne: Pre-M enopa usal Mid Folli cular : 23-10 2 ng/dL Pre-M enopa usal Surge : 67-34 9 ng/dL Pre-M enopa usal Mid Lutea l: 139-4 31 ng/dL Postm enopa usal Phase : < or = 45 ng/dL Pregn jc: First Trime ster: 78-45 7 ng/dL Secon d Trime ster: 90-35 7 ng/dL Third Trime ster: 144-5 78 ng/dL This test was devel oped and its derek tical perfo rmanc e linh cteri stics have been deter mined by [facility]. It has not been clear ed or appro gerardo by FDA. This assay has been valid ated pursu ant to the CLIA regul ation s and is used for clini rocio purpo ses. Perfo rming Organ izati on Infor matio n: Site ID: [id number] Name: [facility]/Casey carlin [facility] [address] , Addre ss: [id number] [place] [address] Direc tor: Heike michelle MD,Ph D,OTONIEL Not Available [facility] (Lab) [address] [place], [address], 04/12/2024 03:01:12 04/15/20 24 04/15/2024 SURGI ROCIO PATHO LOGY surgical pathology SEE RESULT S BELOW CASE REPOR T: Surgi rocio Patho logy Repor t Case: [id number] Autho kathrin beck Provi allyn: Daly Doty MD Colle cted: 04/15 1536 Order ing Locat ion: [place] Patho logy Recei gerardo: 04/16 0257 Patho logis t: Sussy Jiménez MD Speci mens: A) - Endoc ervix , ecc B) - Cervi x, cx bx ----- ----- ----- ----- ----- ----- ----- ----- ----- ----- ----- ----- ----- ----- ----- ----- ----- ---- FINAL DIAGN OSIS: A. Endoc ervix , curet tage: -Crystal te fragm ents of endoc ervic al and squam ous epith elium , negat miguelito for dyspl ethel. B. Cervi x, biops y: -Squa mous epith elium -nega tive for dyspl ethel. Elect marilia garcia d by Sussy hdz MD on 04/18 at 1041 TELEGRAPHIC SERVICE DISPATCHER ----- ----- ----- ----- ----- ----- ----- ----- ----- ----- ----- ----- ----- ----- ----- ----- ----- ---- CLINI ROCIO INFOR MATIO N: Low grade squam ous intra epith elial lesio n MICRO SCOPI C DESCR IPTIO N: A micro scopi c exami natio n was perfo rmed. GROSS DESCR IPTIO N: A. Endoc ervix . The speci men is label ed with the patie nt's name, demog raphi cs and ECC . Recei gerardo in forma yani is a less than 0.1 cm [address] of mucus and minut e white -paul tissu e. The entir e speci men is filte red throu gh a filte r bag and is submi tted in one casse tte; howev er, defin itive tissu e may not survi ve proce ssing . Gross ed by Nya randall B. Cervi x. The speci men is label ed with the patie nt's name, demog raphi cs and Cx Bx . Recei gerardo in forma yani is a 0.5 cm piece of white -paul tissu e. The entir e speci men is submi tted in one casse tte. Gross ed by Nya randall Not Available [facility] (Lab) [address], [place], [address], 04/18/2024 11:45:02 04/15/20 24 04/15/2024 pregn jc test, urine HCG negati ve Not Available [facility] [address] [place], [address], 04/15/2024 15:49:24 Result Notes None recorded. Problems Name Problem SNOMED Code Status Onset Date Resolution Date Notes Provider Name and Address Organization Details Recorded Time Gestatio n period, 35 weeks [id number] Completed 201808/08/2020 35 weeks gestatio n of pregnanc y;Practi ce ID: [address] [facility] 16:58:33 Normal pregnanc y in multigra wesly [id number] 4106 Completed 201808/08/2020 Encounte r for suprvsn of normal pregnanc y, third trimeste r;Practi ce ID: [address] [facility] 16:58:59 Pregnanc y test negative [id number] Completed 201608/08/2020 Encounte r for pregnanc y test, result negative ;Recorde d Elsewher e: No Locat ion: [facility] S ource: EHR Corporate Webmaster casey: N Practi ce ID: [id number] Ed lable Time: 10:15:00 AM Daniellelashon Hammond [facility] 16:59:28 Disorder of uterus [id number] Completed 201808/08/2020 Disorder of uterus;R ecorded Elsewher e: No Locat ion: [facility] S ource: E[employer] Corporate Webmaster casey: N Practi ce ID: [id number] Ed lable Time: 09:45:00 AM Daniellelashon Hammond [facility] 16:58:11 Venereal disease screenin g Completed 201408/08/2020 Screenin g examinat ion for venereal disease; Recorded Elsewher e: No Locat ion: [facility] S ource: E[employer] Corporate Webmaster casey: N Practi ce ID: [id number] Ed lable Time: 10:30:00 AM Danielle newberry [facility] 17:00:14 Gestatio n period, 23 weeks [id number] Completed 201708/08/2020 23 weeks gestatio n of pregnanc y;Record ed Elsewher e: No Locat ion: [facility] S ource: E[employer] Corporate Webmaster casey: N Trell ce ID: [id number] Ed lable Time: 01:45:00 PM Danielle newberry [facility] 16:58:24 Overweig ht [id number] Completed 201408/08/2020 Overweig ht;Recor ded Elsewher e: No Locat ion: [facility] S ource: EHR Corporate Webmaster casey: N Trell ce ID: [id number] Ed lable Time: 10:30:00 AM Danielle newberry [facility] 16:59:02 Complica tion of pregnanc y, childbir th and/or puerperi um [id number] Completed 201708/08/2020 Oth diseases and conditio ns compl preg/chl dbrth;Re corded Elsewher e: No Locat ion: [facility] S ource: EHR Corporate Webmaster casey: N Trell ce ID: [id number] Ed lable Time: 11:30:00 AM Danielle newberry [facility] 17:00:05 Rubella screenin g status [id number] Completed 201708/08/2020 Encounte r for antenata l screenin g, unspecif ied;Nazario rded Elsewher e: No Locat ion: [facility] S ource: EHR Corporate Webmaster casey: N Trell ce ID: [id number] Ed lable Time: 11:15:00 AM Danielle newberry [facility] 16:59:37 Gestatio n period, 27 weeks [id number] Completed 201708/08/2020 27 weeks gestatio n of pregnanc y;Record ed Elsewher e: No Locat ion: [facility] S ource: EHR Corporate Webmaster casey: N Jonnathanti ce ID: [id number] Ed lable Time: 10:30:00 AM Danielle Hammond [facility] 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 1 16:59:47 Noninfla mmatory disorder of vulva [id number] Completed 201808/08/2020 Noninfla mmatory disorder of vulva and perineum , unspecif ied;Nazario rded Elsewher e: No Locat ion: Audraradha rafaela [facility] S ource: EHR Corporate Webmaster casey: N Jonnatahnti ce ID: [id number] Ed lable Time: 03:30:00 PM Danielle Hammond [facility] 1 16:58:57 Clinical finding Completed 201708/08/2020 Maternal care for oth abnlt of cervix, second trimeste r;Record ed Elsewher e: No [facility] S ource: EHR Corporate Webmaster casey: N Jonnathanti ce ID: 0001 Ed lable Time: 10:30:00 AM Daniellelashon Hammond [facility] 16:58:18 Uterine scar from previous surgery affectin g pregnanc y [id number] Completed 201808/08/2020 Matern care for low transver se scar from prev del;Prac radha ID: 0001 [facility] 17:00:08 Steriliz ation procedur e Completed 201811/07/2020 Encounte r for steriliz ation;Pr actice ID: 0001 [facility] 16:25:42 Single live [id number] Completed 201808/08/2020 Single live ;Pr actice ID: 0001 [facility] 16:59:45 Gestatio n period, 39 weeks [id number] Completed 201808/08/2020 39 weeks gestatio n of pregnanc y;Practi ce ID: 0001 [facility] 16:58:36 Lochia finding Completed 201808/08/2020 Encounte r for routine postpart um follow-u p;Practi ce ID: 0001 [facility] 16:58:53 Pelvic and perineal pain [id number] Completed 201808/08/2020 Pelvic and perineal pain;Pra ctice ID: 0001 [facility] 16:59:05 Acute vaginiti s [id number] Completed 201808/08/2020 Acute vaginiti s;Practi ce ID: 0001 [facility] 16:57:43 Bleeding [id number] Completed 201808/08/2020 Abnormal uterine and vaginal bleeding , unspecif ied;Prac radha ID: 0001 Danielle newberry [facility] 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 1 16:59:51 Gestatio n period, 19 weeks [id number] Completed 201708/08/2020 19 weeks gestatio n of pregnanc y;Record ed Elsewher e: No Locat ion: [facility] S ource: EHR Corporate Webmaster casey: N Jonnathanti ce ID: 0001 Ed lable Time: 09:45:00 AM Danielle newberry [facility] 1 16:58:22 Low risk human papillom avirus deoxyrib onucleic acid detected in specimen from cervix [id number] 085723 Active 2014 Cervical low risk HPV DNA test positive ;Recorde d Elsewher e: No Locat ion: [facility] S ource: EHR Corporate Webmaster casey: N Jonnathanti ce ID: 0001 Ed lable Time: 12:00:00 PM Not Available [facility] 0 17:09:43 Spotting per vagina in pregnanc y [id number] Completed 201708/08/2020 Spotting complica ting pregnanc y, second trimeste r;Record ed Elsewher e: No Locat ion: [facility] S ource: EHR Corporate Webmaster casey: N Jonnathanmichele ce ID: 0001 Ed lable Time: 09:45:00 AM Danielle Hammond [facility] 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 1 16:59:49 Infectio n screenin g Completed 201608/08/2020 Encounte r for screenin g for oth infec/pa rastc diseases ;Recorde d Elsewher e: No Locat ion: [facility] S ource: EHR Corporate Webmaster casey: N Jonnathanti ce ID: 0001 Ed lable Time: 10:15:00 AM Danielle [facility] 16:58:50 Gestatio n period, 25 weeks [id number] Completed 201708/08/2020 25 weeks gestatio n of pregnanc y;Record ed Elsewher e: No Locat ion: [facility] S ource: EHR Corporate Webmaster casey: N Practi ce ID: 0001 Ed lable Time: 10:30:00 AM Danielle [facility] 16:58:26 Finding of contents of cervix [id number] Completed 201708/08/2020 Weeks of gestatio n of pregnanc y not specifie d;Record ed Elsewher e: No Locat ion: [facility] S ource: EHR Corporate Webmaster casey: N Practi ce ID: 0001 Ed lable Time: 10:00:00 AM Danielle [facility] 16:58:16 Pregnanc y detectio n examinat ion Completed 201708/08/2020 Encounte r for pregnanc y test, result positive ;Recorde d Elsewher e: No Locat ion: [facility] S ource: EHR Corporate Webmaster casey: N Practi ce ID: 0001 Ed lable Time: 04:00:00 PM Danielle [facility] 16:59:10 Screenin g for malignan t neoplasm of cervix Completed 201611/07/2020 Screenin g for malignan t neoplasm s of the cervix;R ecorded Elsewher e: No Locat ion: [facility] S ource: EHR Corporate Webmaster casey: N Practi ce ID: 0001 Ed lable Time: 10:15:00 AM [facility] 16:25:40 Blood leukocyt e number above referenc e range [id number] Completed 201808/08/2020 Elevated white blood cell count, unspecif ied;Nazario rded Elsewher e: No Locat ion: [facility] S ource: EHR Corporate Webmaster casey: N Practi ce ID: 0001 Ed lable Time: 11:00:00 AM Danielle newberry [facility] 1 16:58:48 Neoplasm of uterine cervix Completed 201411/07/2020 Moderate cervical dysplasi a;Record ed Elsewher e: No Locat ion: [facility] S ource: EHR Corporate Webmaster casey: N Jonnathanti ce ID: 0001 Ed lable Time: 12:00:00 PM Danielle newberry [facility] 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 1 16:59:08 Uterine size for dates discrepa ncy Completed 201708/08/2020 Uterine size-marty e discrepa ncy, first trimeste r;Record ed Elsewher e: No Locat ion: [facility] S ource: EHR Corporate Webmaster casey: N Practi ce ID: 0001 Ed lable Time: 10:30:00 AM Danielle newberry [facility] 1 17:00:11 Threaten ed miscarri age [id number] Completed 201708/08/2020 Threaten ed ;Recorde d Elsewher e: No [facility]: EHR Corporate Webmaster casey: N Practi ce ID: 0001 Ed lable Time: 10:00:00 AM Danielle [facility] 16:59:59 Breast lump [id number] Completed 201708/08/2020 Unspecif ied lump in unspecif ied breast;R ecorded Elsewher e: No Locat ion: [facility] S ource: EHR Corporate Webmaster casey: N Trell ce ID: 0001 Ed lable Time: 10:15:00 AM Danielle [facility] 16:57:49 Adult health examinat ion Completed 201408/08/2020 ROUTINE MEDICAL EXAM;Rec orded Elsewher e: No Locat ion: [facility] S ource: EHR Corporate Webmaster casey: N Trell ce ID: 0001 Ed lable Time: 10:30:00 AM Danielle [facility] 16:57:45 Syphilis test finding [id number] Completed 201711/07/2020 Encntr screen for infectio ns w sexl mode of transmis s;Record ed Elsewher e: No Locat ion: [facility] S ource: EHR Corporate Webmaster casey: N Trell ce ID: 0001 Ed lable Time: 10:15:00 AM Danielle [facility] 16:25:44 Secondar y amenorrh ea [id number] Completed 201708/08/2020 Secondar y amenorrh ea;Recor ded Elsewher e: No Locat ion: [facility] S ource: EHR Corporate Webmaster casey: N Trell ce ID: 0001 Ed lable Time: 10:15:00 AM Danielle [facility] 16:59:42 Cytologi c finding [id number] Completed 201408/08/2020 Papanico laou smear of cervix with low grade squamous intraepi thelial lesion (LGSIL); Recorded Elsewher e: No Locat ion: Angela russo [facility] S ource: EHR Corporate Webmaster casey: N Practi ce ID: 0001 Ed lable Time: 03:00:00 PM Danielle Hammond [facility] 16:58:08 Congenit al abnormal ity of uterus, affectin g pregnanc y [id number] Completed 201808/08/2020 Maternal care for unsp congen malform of uterus, third tri;Nazario rded Elsewher e: No Locat ion: Angela russo [facility] S ource: EHR Corporate Webmaster casey: N Practi ce ID: 0001 Ed lable Time: 09:45:00 AM Danielle [facility] 16:58:06 Gestatio n period, 8 weeks [id number] Completed 201708/08/2020 8 weeks gestatio n of pregnanc y;Record ed Elsewher e: No Locat ion: Angela russo [facility] S ource: EHR Corporate Webmaster casey: N Practi ce ID: 0001 Ed lable Time: 10:30:00 AM Daniellelashon Hammond [facility] 16:58:38 Antenata l screenin g Completed 201708/08/2020 Encounte r for antenata l screenin g for nuchal transluc ency;Rec orded Elsewher e: No Locat ion: Angela russo [facility] S ource: EHR Corporate Webmaster casey: N Practi ce ID: 0001 Ed lable Time: 10:45:00 AM Danielle Hammond [facility] 16:57:47 Gestatio n period, 37 weeks [id number] Completed 201808/08/2020 37 weeks gestatio n of pregnanc y;Record ed Elsewher e: No Locat ion: Angela russo [facility] S ource: EHR Corporate Webmaster casey: N Practi ce ID: 0001 Ed lable Time: 08:45:00 AM Daniellelashon Hammond [facility] 16:58:34 Pregnanc y, childbir th and puerperi um finding Completed 201708/08/2020 Oth pregnanc y related conditio ns, first trimeste r;Practi ce ID: 0001 Danielle Hammond null, [facility] 16:57:57 Gestatio n less than 9 weeks [id number] Completed 201708/08/2020 Less than 8 weeks gestatio n of pregnanc y;Practi ce ID: 0001 Danielle Hammond null, [facility] 16:58:20 Problem Notes None recorded. Procedures Surgical History Date Name Laterality Status Provider Name and Address Organization Details Recorded Time 024 Colposcopy completed Willie Doty MD [address], [place], [address], [facility] 04/15/2024 17:30:56 023 Date of Last Pap Smear completed Julissa Warren [facility] 04/06/2024 15:58:14 023 Wart Topical Procedure completed Laila Rao [facility] [address], [place], [address], [facility] 10/24/2022 22:36:46 023 Wart Topical Procedure completed Laila Rao [facility] [address], [place], [address], [facility] 09/11/2022 15:47:29 022 Date of Last Mammogram completed Adelaida Pickens [facility] 06/05/2022 15:51:52 019 Tubal Ligation completed Danielle Hammond [facility] 12/31/2022 14:44:17 015 loop electrosurgical excision procedure completed Danielle Richard [facility] 06/27/2020 14:00:02 015 Colposcopy completed Danielle [facility] 11/07/2020 16:27:19 015 Colposcopy completed [facility] 11/07/2020 16:27:43 Imaging Results None recorded. Procedure Notes None recorded. Medical Equipment None Reported. Allergies Allergen ID Allergen Name Allergen Category Reaction Reaction Severity Criticality Documentation Date Start Date Code Code System Note Provider Name and Address Organization Details Recorded Time 9957 sulfameth oxazole medicatio n Not available Not available Not available 04/13/2020 45946 RxNorm Comme nt: [facility] Agent : Bactr im; Not Available [facility] 0 14:14:46 9960 trimethop rim medicatio n Not available Not available Not available 04/13/2020 56609 RxNorm Comme nt: [facility]at [facility] Agent : Bactr im; Not Available [facility] 0 14:14:46 Medications Name Sig Start Date Stop Date Status Note LastModified by Organization Details LastModified Time Prescript ion - Prior Authoriza tion Request 09/11 completed Not Available Not Available Not Available tetracycl ine 500 mg capsule 12/16 completed Not Available Not Available Not Available cyclobenz aprine 10 mg tablet take 1 tablet by oral route before intercou rse 2023 active Not Available Not Available Not Avai lable bupropion HCl SR 150 mg tablet,12 hr sustained -release 06/05 completed Not Available Not Available Not Available nicotine 14 mg/24 hr daily transderm al patch 09/05 completed Not Available Not Available Not Available nystatin 100,000 unit/gram topical ointment APPLY TO THE AFFECTED AREA(S) BY TOPICAL ROUTE 2 TIMES PER DAY 01/22 completed Not Available Not Available Not Available fluconazo le 150 mg tablet take 1 tablet by oral route once 04/06 completed Not Available Not Available Not Available Xanax 2 mg tablet Take 1 tablet as needed by oral route, for pain with intercou rse. 04/06 completed per vagina Not Available Not Available Not Available fluconazo le 200 mg tablet Take 1 tablet every other day x 3 doses. 10/02 completed Not Available Not Available Not Available phenazopy ridine 200 mg tablet 06/05 completed Not Available Not Available Not Available metronida zole 0.75 % (37.5 mg/5 gram) vaginal gel insert 1 applicat orful by vaginal route every day at bedtime 2023 active Not Available Not Available Not Avai lable metronida zole 250 mg tablet 12/16 completed Not Available Not Available Not Available metronida zole 500 mg tablet take 1 tablet by oral route every 12 hours x 7 days 04/06 completed Not Available Not Available Not Available ciproflox acin 500 mg tablet 06/05 completed Not Available Not Available Not Available nystatin- triamcino lone 100,000 unit/gram -0.1 % topical ointment APPLY TOPICALL Y TO THE AFFECTED AREA TWICE DAILY 01/22 completed Not Available Not Available Not Available Microgest in FE 05/16 (28) 1 mg-20 mcg (21)/75 mg (7) tablet take 1 tablet by oral route every day 07/20 completed Prescrib ed Elsewher e: No Locat ion: [facility] M odify By: [email or web address] trick En counter DateTime : 06/14/19 15 10:30:00 AM Not Available Not Available Not Available Depo-Prov era 150 mg/mL intramusc ular suspensio n Inject 1 mL every 3 months by intramus cular route. 2023 active Not Available Not Available Not Avai lable dicyclomi ne 20 mg tablet 12/16 completed Not Available Not Available Not Available paroxetin e 30 mg tablet 01/22 completed Not Available Not Available Not Available paroxetin e 20 mg tablet 10/16 completed Not Available Not Available Not Available triamcino lone acetonide 0.1 % topical ointment APPLY A THIN LAYER TO THE AFFECTED AREA(S) BY TOPICAL ROUTE 2 TIMES PER DAY 01/22 completed Not Available Not Available Not Available nicotine 21 mg/24 hr daily transderm al patch 09/05 completed Not Available Not Available Not Available ibuprofen 200 mg tablet take 1 tablet by oral route every 6 hours as needed with food 07/27 completed Prescrib ed Elsewher e: Yes Loca tion: [facility] M odify By: [email or web address] trick En counter DateTime : 07/21/19 15 02:15:00 PM Not Available Not Available Not Available sertralin e 25 mg tablet 09/05 completed Not Available Not Available Not Available omeprazol e 20 mg capsule,d elayed release 12/16 completed Not Available Not Available Not Available ergocalci ferol (vitamin D2) 1,250 mcg (50,000 unit) capsule TAKE 1 CAPSULE BY MOUTH EVERY WEEK 01/16 completed Not Available Not Available Not Available Wellbutri n 100 mg tablet take 1 tablet by oral route 2 times every day 06/14 completed Prescrib ed Elsewher e: Yes Loca tion: [facility] odify By: [email or web address] E ncounter DateTime : 02/20/20 12:00:00 PM Not Available Not Available Not Available ondansetr on 4 mg disintegr ating tablet 12/16 completed Not Available Not Available Not Available dicyclomi ne 10 mg capsule 06/05 completed Not Available Not Available Not Available diazepam 5 mg tablet Take 1 tablet twice a day by oral route. 01/22 completed Not Available Not Available Not Available nicotine 7 mg/24 hr daily transderm al patch 09/05 completed Not Available Not Available Not Available oxycodone 5 mg tablet 12/16 completed Not Available Not Available Not Available Depo-Prov era 150 mg/mL intramusc ular syringe Inject 1 mL every 3 months by intramus cular route. 04/15 completed Not Available Not Available Not Available escitalop cathie 10 mg tablet Take 1 tablet every day by oral route. 02/20 completed Not Available Not Available Not Available escitalop cathie 20 mg tablet Take 1 tablet every day by oral route. 04/06 completed Not Available Not Available Not Available Mouthpiec e device 06/14 completed Prescrib ed Elsewher e: Yes Loca tion: Angela russo [facility] odify By: rachana branham DateTime : 02/20/20 12:00:00 PM Not Available Not Available Not Available bupropion HCl XL 150 mg 24 hr tablet, extended release Take 1 tablet every day by oral route. 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 A 28 mg iron-1 mg-200 mg capsule take 1 capsule by oral route every day 10/08 completed Prescrib ed Elsewher e: No Locat ion: Yahaira rafeala [facility] odify By: [email or web address] Adonis friend DateTime : 10/20/19 08:19:37 AM Not Available Not Available Not Available Nuvessa 1.3 % (65 mg/5 gram) vaginal gel 01/22 completed Not Available Not Available Not Available Vitals Date Recorded Body height Body mass index (BMI) Body weight Systolic blood pressure Diastolic blood pressure Provider Name and Address Organization Details Last Updated DateTime 01/22/2023 157.48 cm 24 kg/m2 81235.6 g 110 mm[Hg] 74 mm[Hg] Danielle Hammond [facility] 10:34:09 Date Recorded Body height Provider Name an d Address Organization Details Last Updated DateTime 01/23/2023 157.48 cm Danielle Hammond [facility] Russo [facility] 01/23/2023 14:39:29 Date Recorded Body height Body mass index (BMI) Body weight Systolic blood pressure Diastolic blood pressure Provider Name and Address Organization Details Last Updated DateTime 02/20/2023 157.48 cm 24.3 kg/m2 54144.79 g 108 mm[Hg] 72 mm[Hg] [facility] 3 12:45:07 Date Recorded Body height Body mass index (BMI) Body weight Systolic blood pressure Diastolic blood pressure Provider Name and Address Organization Details Last Updated DateTime 04/06/2024 157.48 cm 26 kg/m2 82250.12 g 124 mm[Hg] 87 mm[Hg] [facility] 4 15:56:58 Date Recorded Body height Body mass index (BMI) Body weight Systolic blood pressure Diastolic blood pressure Provider Name and Address Organization Details Last Updated DateTime 04/15/2024 157.48 cm 25.2 kg/m2 30637.75 g 116 mm[Hg] 78 mm[Hg] [facility] 4 15:48:02 Social History Question Answer Notes LastModified by Organizat ion Details LastModified Time Tobacco Smoking Status Current Every Day Smoker Enriqueta newberry, [facility] 01/22/2023 10:21:14 Do You Have An Advance Directive? No Information n ot available 11/07/2020 What Is Your Level Of Alcohol Consumption? None Information not available 06/27/2020 Are You Blind Or Do You Have Difficulty Seeing? Yes Information n ot available 11/07/2020 What Is Your Level Of Caffeine Consumption? Heavy Information not available 11/07/2020 In The 14 Days Before Symptom Onset, Have You Had Close Contact With A Laboratory-confirm ed COVID-19 While That Case Was Ill? No Information n ot available 11/07/2020 In The 14 Days Before Symptom Onset, Have You Had Close Contact With A Person Who Is Under Investigation For COVID-19 While That Person Was Ill? No Information not available 11/07/2020 Have You Been To An Area Known To Be High Risk For COVID-19? No Information not available 11/07/2020 Are You Deaf Or Do You Have Serious Difficulty Hearing? No Information not available 11/07/2020 What Type Of Diet Are You Following? REGULAR Information n ot available 06/27/2020 What Is The Highest Grade Or Level Of School You Have Completed Or The Highest Degree You Have Received? 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 No Information not available 11/07/2020 Do You Use Protection During Sex? No Information not available 11/07/2020 Do You Use Your Seat Belt Or Car Seat Routinely? Yes Information not available 11/07/2020 Do You Have Smoke And Carbon Monoxide Detectors In Your Home? Yes Information not available 11/07/2020 At What Age Did You Start Smoking Tobacco? 13 Information not available 11/07/2020 How Much Tobacco Do You Smoke? 2 PPD Information not available 06/27/2020 Do You Feel Stressed (tense, Restless, Nervous, Or Anxious, Or Unable To Sleep At Night)? [id number] Information not available 11/07/2020 Do You Use Any Illicit Or Recreational Drugs? No Information not available 06/27/2020 Do You Use Sunscreen Routinely? Yes Information not available 11/07/2020 Has Tobacco Cessation Counseling Been Provided? No [email or web address] Information not available 01/22/2023 How Many Years Have You Smoked Tobacco? 20 Information not available 11/07/2020 Have You Used IV Drugs? No Information not available 11/07/2020 Do You Or Have You Ever Used Any Other Forms Of Tobacco Or Nicotine? No Information not available 01/22/2023 Sex: Unknown Functional Status Question Answer Note LastModified by Organizat ion Details LastModified Time Do you have difficulty walking or climbing stairs? No [email or web address] Information not available 01/22/2023 Are you able to walk? YESWOREST [email or web address] Information not available 12/16/2021 Are you able to care for yourself? Yes [email or web address] Information not available 01/22/2023 Do you have difficulty dressing or bathing? No [email or web address] Information not available 01/22/2023 What is your exercise level? None Information not available 06/27/2020 Mental Status None recorded. Family History Relationship Description Onset Age of this Age Resolved Age Notes LastModified by Organization Details LastModified Time Father No current problems or disability [email or web address] Not available 04/15 15:48:42 Mother No current problems or disability [email or web address] Not available 04/15 15:48:42 Medical History Condition Response Allergies (Food, seasonal, environmental ) N Other Y Drug/Latex Allergies/Reactions N Blood Transfusion N Breast Cancer N Dermatologic Disorders N Lung Disease N Defects or Inherited Disease N Breast Problem N Gestational Diabetes N Hematologic disorders N Anesthesia Complications N History of STI Y Deep Vein Thrombosis N Polycystic ovary syndrome N Anxiety Disorder Y Autoimmune disease N Arthritis N Polyps N Infertility N Acid Reflux (GERD) N History of abnormal pap Y Cancer N Varicosities N Stroke N Neurologic/Epilepsy N Endometriosis N High Cholesterol N Fibromyalgia N Headaches N Kidney Disease N Heart Problems N Thyroid Problems N Kidney or Bladder Problems N GI Problems Y Eating Disorder N Anemia N Art (IVF or FET) N Psychiatric Illness N Ovarian Cancer N Diabetes N Pulmonary (TB, Asthma) N Hepatitis/Liver Disease N No Past Medical History N Eczema N Urinary Tract Infection N Abuse/Domestic Violence N Asthma N Trauma/Violence N Depression/ depression Y Heart Disease N Pre-Eclampsia N Hypertension N Osteoporosis N Thrombophilias N Gynecological History Statement/Question Response Abnormal Pap Yes Date of Last Mammogram 07/27/2021 Date of LMP 02/16/2024 N On BCP's at Conception? N STIs/STDs N Was last menstrual period normal N HPV Vaccine N Colposcopy 07/06/2014 Duration of Flow (days) 45 Current Control Method Tubal Ligat ion Age at First Child 20 Date of control 1985 Are cycles usually normal Y Sexually Active? Y Menses Monthly N Age of first menstrual cycle 11 Date of Last Pap Smear 01/22/2023 Sexual Problems? Y LMP Unknown Desired Control Method Hormonal In jection N Obstetrics History GPAL:G 2 P 1 1 0 2 Type Value Multiple Births 1 Full Term 1 Premature 1 Living 2 Total 2 Past Encounters Encounter ID Performer Location Encounter Start Date Encounter Closed Date Diagnosis/Indication Diagnosis SNOMED-CT Code Diagnosis ICD10 Code Diagnosis Note [id number] Willie Doty MD [facility] [address],[place] [address] 06/27/2020 15:44:05 06/27/2020 16:27:05 Gynecologic examination 84051847 Z01.419 This patient is here for her annual exam. A thorough history was taken. A physical exam was performed. Age appropriat e routine health screening was ordered, performed, and discussed. Recommende d testing was ordered. She was asked to follow up in one year. She will be informed of any test results. 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 reports sadness, worthlessn ess, or diet, poor sleep, inability to concentrat e. Ab stay campos we talked about treatment. We agreed to treat with SSRI. She will follow up in 1 month. She reports that she does not plan on hurting herself she is not having thoughts of hurting herself. She is not having thoughts of hurting and also [id number] Willie Doty MD [facility] [address],[place] [address] 08/08/2020 16:54:54 08/10/2020 14:36:22 Anxiety 83522984 F41.9 this patient is a 35-year-ol d female presents for follow-up on medication . Patient was having depression symptoms and was treated with an SSRI. She was started on 10 mg of Lexapro. She reports significan t improvemen t. However, she feels there could be some improvemen t. We discussed increasing the dose. We agreed to increase her dose to 20. twenty of Lexapro and she will return in 3 months. We talked about vitamin-D supplement ation. [id number] Willie Doty MD [facility] [address],[place] [address] 11/07/2020 16:16:38 11/08/2020 14:13:29 Depressive disorder 57147933 F32.9 ? t his patient is a 35-year-ol d female presents for med check and follow-up on depression . She is still feeling depressed she did feel some improvemen t in the 1st couple of weeks but now has continued depression . We talked about counseling . We have agreed to arrange counseling for the patient. Talked about medication changes. We spent considerab le time talking about her social issues. Talked about medication options. Agreed to add a medication . We agreed to Wellbutrin 150 mg. She will follow-up in 1 month. Patient denies any suicidal ideation or intention.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
--- OUTSIDE RECORDS SUMMARY | 2024-05-19 08:25 | XMS_ITS | Clinical Summary ---
Author Organization [facility] Address [address] [place] [address] Care Team Providers Care Home Day Care Provider Name Role Phone Unavailable Primary Care Provider Unavailabl e Allergies Active Allergy Reactions Criticality Noted Date Comments Malt Extract Unknown Medium 12/30/2012 Sulfamethoxazole-Trimethoprim Hives,Anaphylaxis High 10/26/2017 Medications No known medications Active Problems Problem Noted Date Diagnosed Date Fibroadenoma, left 11/10/2017 Mastodynia 11/03/2017 Lump of right breast 10/26/2017 Tobacco use 10/26/2017 Resolved Problems Problem Noted Date Diagnosed Date Resolved Date Abnormal ultrasound of breast 10/26/2017 09/10/2018 Social History Tobacco Use Types Packs/Day Years Used Date Smoking Tobacco: Every Day Cigarettes 0.5 19 Smokeless Tobacco: Never Tobacco Cessation:Ready to Q uit: Yes Comments:gradually cutting down on cigarettes Alcohol Use Standard Drinks/Week Comments No 0 (1 standard drink = 0.6 oz pur e alcohol) Comments No Sex and Gender Information Value Date Recorded Sex Assigned at Not on file Legal Sex Female 2:22 PM CDT Gender Identity Not on file Sexual Orientation Not on file Last Filed Vital Signs Vital Sign Reading Time Taken Comments Blood Pressure 112/92 09/10/2018 1:05 PM CDT Pulse 89 09/10/2018 1:05 PM CDT Temperature 37 ??C (98.6 ??F) 09/10/2018 1:05 PM CDT Respiratory Rate - - Oxygen Saturation 98% 09/10/2018 1:05 PM CDT Inhaled Oxygen Concentration - - Weight 59.5 kg (131 lb 1.6 oz) 09/10/2018 1:05 P M CDT Height 157.5 cm (5' 2 ) 09/10/2018 1:05 PM CDT Body Mass Index 23.98 09/10/2018 1:05 PM CDT Plan of Treatment Health Maintenance Due Date Last Done Comments PNEUMOCOCCAL VACCINE 0-64 YE ARS (1 of 2 - PCV) 01/12/1992 DTAP/TDAP/TD VACCINES (1 - Tdap) 2005 HEPATITIS B VACCINES (1 of 3 - 19+ 3-dose series) 2005 CERVICAL CANCER SCREENING 01/12/2016 INFLUENZA VACCINE (#1) 2023 HPV VACCINES Aged Out No longer eligi ble based on patient's age to complete this topic Insurance [facility]
--- OUTSIDE RECORDS SUMMARY | 2024-05-19 08:25 | XMS_ITS | Referral Summary ---
Author Organization [facility] Address [address] [place] [address] Care Team Providers Care Soft Water Mechanic Name Role Phone Yovany Gonzalez MD Primary Care Provider Source Comments [facility],non-owned Affiliates and Associated Physician Practices is amultiple site organization consisting of ambulatory clinics and hospital sitesin [place], [place], [place] and [place]. This disclosure is being madepursuant to the Care Everywhere program and may not contain all information available regarding this patient. Last updated 18.[facility] Allergies Active Allergy Reactions Criticality Noted Date Comments Sulfamethoxazole W-Trimethoprim Anaphylaxis High Malt Skin Reactions Medium 12/30/2012 Medications * Be aware that medications may not be up to date on this document. Alwaysverify current medications with the patient. Medication Sig Dispensed Refills Start Date End Date Status [id number]-[id number]-[id number] ( VITAMIN WITH IRON) tablet Take 1 [...] 01/20/2018 10:40 AM CDT Plan of Treatment Not on file Care Teams Soft Water Mechanic Relationship Specialty Start Date End Date Yovany Gonzalez MD [address] [facility] [address] [place] [address] PCP - General 12/31/21
== END 2024-05-14 07:52 | disposition home or self-care (01) ==
LOC: ANHED 07:38
PROVIDERS: Emergency Medicine; Emergency Provider Emergency Medicine
DX: N39.0 Urinary tract infection, site not specified (principal); F17.210 Nicotine dependence, cigarettes, uncomplicated; Z79.3 Long term (current) use of hormonal contraceptives
CPT/HCPCS: 81001; 81025; 99283; A9270

== ENCOUNTER 2025-01-20 08:30 | Outpatient (RCR) | payer OTHER, SELFPAY ==
--- NOTE | 2024-12-22 14:27 | OPREHPOC ---
Outpatient Therapy Plan of Care This is a Multidisciplinary Plan of Care that may contain components documented by all disciplines (PT, OT, and ST.) PT Problem 1 PT Problem #1 Knowledge Deficit PT Goal 1 Goal / Goal Update Pt. will demo good understanding of diagnosis and prognosis, HEPs. Target Visit 8 PT Problem 2 PT Problem #2 Pain PT Goal 1 Goal / Goal Update Pt will report improved pain of 1-2/10 at worst when performing squats, walking >300ft and single leg standing.? PT Problem 3 PT Problem #3 Impaired Range of Motion PT Goal 1 Goal / Goal Update Pt will demo increase in hip and knee ROM to WNL in order to allow improved functional mobility and safety. PT Problem 4 PT Problem #4 Impaired Strength PT Goal 1 Goal / Goal Update Pt will perform 5 x STS with minimal BUE support indicating improved BLE strength and overall balance.?? Pt will perform single leg standing x 10 seconds each LE with improved stability. PT Problem 5 PT Problem #5 Impaired Gait PT Goal 1 Goal / Goal Update Pt will demo normalized gait pattern with equal weight shift and stride length, improved arm swing and postural stability on various surfaces and stairs.
--- NOTE | 2024-12-22 14:27 | PTOPEVAL1 ---
Assessment and note entered by Audra Terrell, PT Evaluation Information Assessment Status Evaluation Diagnosis M22.40, S89.91 ICD-10 Condition Codes (PT) Pain in right knee M25.561,Pain in left knee M25. 562,Abnormalities of gait and mobility R26.9, Weakness R53.1 Onset 3 months ago for R knee, 2 months ago for L knee Subjective Information Pt reports she had injured R knee while walking on concrete, she heard a pop and since then, she is feeling mild popping everytime she moves RLE. However, B knees hurt when walking up/down stairs, or walking for long distances. Reported Pain Level Pain Score 4: Self Report Additional Pain Score Comments Initially, R knee was painful after injury, today at eval, L knee > R knee. Assessment PT Clinical Summary Pt presents to therapy with c/o pain to B knees, L > R impacting her ADLs and community ambulation. 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 She demos ROM deficits to B knees, general BLE weakness, muscle guarding and tightness to L hamstrings and lateral quads area, bilateral adductors and bilateral dorsiflexors, postural impairments, gait deficits. She will benefit from skilled PT to reduce pain, improve strength and functional mobility. Plan of Care Interventions Check Out for Orthotic/Prosthetic,Electrical Stimulation,Gait Training,Hot Pack/Cold Pack, Manual Therapy,Neuro Re-education,Patient/ Caregiver Education,Therapeutic Activities, Therapeutic Exercise Other Interventions IASTM, Taping PT Services Indicated Yes Treatment Frequency and 2x/week x 10 visits Duration These treatments will address the objective and functional deficits as defined above. The patient will be advanced safely and appropriately in order for the patient to progress towards his/her prior level of function. Additional exercises will be introduced and as well as a comprehensive home exercise program upon discharge, if needed, ?to ensure carryover of functional gains achieved in the clinic. This treatment plan has been reviewed and agreement upon by the patient.
--- NOTE | 2025-01-11 08:36 | PCPTNOTE ---
No call no show, reason unknown. AKMary
--- NOTE | 2025-01-25 08:41 | PCPTNOTE ---
No call no show, reason unknown. AKMary
--- NOTE | 2025-01-27 08:53 | PCPTNOTE ---
No call no show, reason unknown. AKMary
--- NOTE | 2025-02-01 08:45 | PCPTNOTE ---
No call no show, reason unknown. AKMary
--- NOTE | 2025-02-03 16:34 | PTOPDC ---
Assessment and note entered by Audra Terrell, PT Discharge Information Assessment Status Discharge - Pt Not Present Diagnosis M22.40, S89.91 ICD-10 Condition Codes (PT) Pain in right knee M25.561,Pain in left knee M25. 562,Abnormalities of gait and mobility R26.9, Weakness R53.1 Onset 3 months ago for R knee, 2 months ago for L knee Subjective Information Pt reports she had injured R knee while walking on concrete, she heard a pop and since then, she is feeling mild popping everytime she moves RLE. However, B knees hurt when walking up/down stairs, or walking for long distances. Assessment PT Clinical Summary Pt was referred to therapy due to B knee pain. She came to be evaluated and received 6/10 treatment sessions. However, she has scheduled for 4 appointments to which she did not show and did not provide prior notice. She also missed showing up for her scheduled re-evaluation today. Skilled PT discontinued due to non-attendance. Plan of Care PT Services Indicated No
== END 2025-02-03 16:59 | disposition home or self-care (01) ==
LOC: ANHPT 08:30
PROVIDERS: Visit Provider Orthopaedic Surgery
DX: M22.40 Chondromalacia patellae, unspecified knee (principal); S89.91XA Unspecified injury of right lower leg, initial encounter
CPT/HCPCS: 97110; 97161; 97530